=== PATIENT | female | born 1970 | race Caucasian/White ===

== ENCOUNTER → 2017-02-25 | Outpatient (CLI) | payer OTHER ==
--- NOTE | 2017-02-26 07:29 | XR ---
EXAMINATION TYPE: XR lumbar spine 2 or 3V DATE OF EXAM: 02/25/2017 4:15 PM COMPARISON: 10/01/2016 HISTORY: Spondylosis with radiculopathy, follow-up back surgery TECHNIQUE: 3 view lumbar spine FINDINGS: Pedicle screws are present L3 and L4. Laminectomies are present L3-L5. Disc spaces are pres ent L4-5 and L5-S1. Bone buttressing is present along the lateral lower lumbar spine. Vertebral body alignment appears normal. Posterior disc space narrowing is present L3-4. IMPRESSION: 1. Stable postsurgical changes with maturation of the osseous bone buttressing.
== END ==
LOC: RADXRMAIN 16:00
DX: M47.26 Other spondylosis with radiculopathy, lumbar region (principal); M48.06 Spinal stenosis, lumbar region
CPT/HCPCS: 36415; 72100; 83036; 84450; 84460; 85025

== ENCOUNTER → 2017-02-25 | Outpatient (CLI) | payer OTHER ==
[2017-02-25 16:47] LABS: Basophils % (A) 0 %; CH 33.9; CHCM 35.5; Eosinophils # (A) 0.3 k/uL (0-0.7); Eosinophils % (A) 5 %; HCT 36.5 % (34.0-46.0); HDW 2.65; HGB 12.7 gm/dL (11.4-16.0); Luc # (Auto) 0.14; Luc % (Auto) 3; Lymphocytes # (A) 1.5 k/uL (1.0-4.8); Lymphocytes % (A) 30 %; MCH 33.3 pg (25.0-35.0); MCHC 34.7 g/dL (31.0-37.0); Mean Platelet Volume 7.9; Monocytes # (A) 0.3 k/uL (0-1.0); Monocytes % (A) 6 %; Neutrophils # (A) 2.7 k/uL (1.3-7.7); Neutrophils % (A) 55 %; WBC (Perox) 5.34
[2017-02-25 16:54] LABS: ALT 30 U/L (9-52); AST 26 U/L (14-36)
[2017-02-25 20:38] LABS: Hemoglobin A1C 4.5 % (4.2-6.1)
== END ==
LOC: LABWHC1 16:26
PROVIDERS: ATTEND Psychiatry & Neurology Neurology
DX: G35 Multiple sclerosis (principal); Z79.899 Other long term (current) drug therapy
CPT/HCPCS: 36415; 83036; 84450; 84460; 85025

== ENCOUNTER → 2017-04-19 | Outpatient (CLI) | payer OTHER ==
[2017-04-19 14:26] LABS: ALT 39 U/L (9-52); AST 24 U/L (14-36)
== END | disposition home or self-care (01) ==
LOC: LABWHC1 12:39
PROVIDERS: ATTEND Psychiatry & Neurology Neurology
DX: G35 Multiple sclerosis (principal); Z79.899 Other long term (current) drug therapy
CPT/HCPCS: 36415; 84450; 84460

== ENCOUNTER 2017-06-28 16:37 | Emergency (ER) | payer OTHER ==
[2017-06-28 16:52] VITALS: BP 113/73; PULSE 103; RESP 16; TEMP 97.7
[2017-06-28] MEDS ORDERED: DIPH,PERTUS(ACELL)TETVAC-LF 0.5 ML VIAL IM ONE (17:15)
--- NOTE | 2017-06-28 17:20 | ED ---
General Adult HPI - General Chief complaint: Wound/Laceration Stated complaint: Hand Laceration Time Seen by Provider: 06/28/17 16:51 Source: patient, RN notes reviewed Mode of arrival: ambulatory Limitations: no limitations - History of Present Illness Initial comments: Patient 47-year-old female who presents emergency room today with a chief complaint of a laceration to the left hand between the web space of the second and third digits. Patient does admit that she was trying to cut a avocado when the knife when straight throat causing this laceration. States it was brand- new knife. Patient denies any other complaints or associated symptoms. Patient denies any recent fever, chills, shortness of breath, chest pain, back pain, abdominal pain, nausea or vomiting, numbness or tingling, dysuria or hematuria, constipation or diarrhea, headaches or visual changes, or any other complaints. - Related Data Home Medications Medication Instructions Recorded Confirmed Baclofen 10 mg PO QID 09/25/15 06/25/17 Betaseron 1 injection IM Q48H 09/25/15 06/25/17 traMADol HCL [Ultram] 50 mg PO BID PRN 09/25/15 06/25/17 Acetaminophen Tab [Tylenol] 1,000 mg PO Q6HR PRN 10/30/15 06/25/17 Multivitamins, Thera [Multivitamin 1 tab PO DAILY 10/30/15 06/25/17 (formulary)] [place]-3 Fatty Acids/Fish Oil [Fish 1 cap PO BID 10/30/15 06/25/17 Oil 1,000 mg Softgel] Vitamin B Complex 1 cap PO DAILY 10/30/15 06/25/17 buPROPion XL [Wellbutrin XL] 450 mg PO DAILY 04/30/16 06/25/17 Ascorbic Acid [Vitamin C] 1,000 mg PO BID 06/25/17 06/25/17 Cephalexin [Keflex] 500 mg PO QAM 06/25/17 06/25/17 Cholecalciferol [Vitamin D3] 5,000 unit PO DAILY 06/25/17 06/25/17 Cranberry Fruit Concentrate 450 mg PO BID 06/25/17 06/25/17 [Cranberry] Furosemide [Lasix] 20 mg PO DAILY PRN 06/25/17 06/25/17 Gabapentin 600 mg PO QID 06/25/17 06/25/17 Hydroxychloroquine Sulfate 200 mg PO BID 06/25/17 06/25/17 [Plaquenil] L.acidoph,Paracasei, B.lactis 1 each PO DAILY 06/25/17 06/25/17 [Probiotic] Levothyroxine Sodium [Synthroid] 175 mg PO QAM 06/25/17 06/25/17 Magnesium Oxide [Mag-Ox] 250 mg PO HS 06/25/17 06/25/17 Methylcellulose Tablet 500 mg PO BID 06/25/17 06/25/17 Naproxen Sodium 220 mg PO BID PRN 06/25/17 06/25/17 Niacin [Niacin ER] 500 mg PO DAILY 06/25/17 06/25/17 Oxybutynin Chloride [Ditropan] 5 mg PO TID 06/25/17 06/25/17 Phentermine HCl [Adipex-P] 37.5 mg PO QAM 06/25/17 06/25/17 Stool Softner 1 tab PO DAILY PRN 06/25/17 06/25/17 amLODIPine [Norvasc] 5 mg PO DAILY 06/25/17 06/25/17 Previous Rx's Medication Instructions Recorded Cephalexin [Keflex] 500 mg PO Q12HR 10 Days 06/28/17 Allergies Allergy/AdvReac Type Severity Reaction Status Date / Time No Known Allergies Allergy Verified 06/28/17 16:52 Review of Systems ROS Statement: Those systems with pertinent positive or pertinent negative responses have been documented in the HPI. ROS Other: All systems not noted in ROS Statement are negative. Past Medical History Past Medical History: Neurologic Disorder, Thyroid Disorder Additional Past Medical History / Comment(s): Lupus and rheumatoid arthritis, 2015 uti/sepsis-ecoli, kidney stone, constipation, multiple sclerosis, self cath, has urinary retention, frequent UTI's, History of Any Multi-Drug Resistant Organisms: MRSA Date of last positivie culture/infection: 2014 MDRO Source:: leg Past Surgical History: Back Surgery, Bladder Surgery, Section, Cholecystectomy Additional Past Surgical History / Comment(s): fusion l4-l5 has screws/later removed, raven bunionectomies, bladder sling, 2. lithotripsy, fusion L3 and L4 Past Anesthesia/Blood Transfusion Reactions: No Reported Reaction Past Psychological History: Anxiety Smoking Status: Former smoker Past Alcohol Use History: None Reported Past Drug Use History: None Reported - Past Family History Father Family Medical History: Cancer Additional Family Medical History / Comment(s): lung cancer x2 Mother Family Medical History: Cancer Additional Family Medical History / Comment(s): rectal cancer General Exam - General Exam Comments Initial Comments: General: The patient is awake and alert, in no distress, and does not appear acutely ill. Neck: The neck is supple, there is no tenderness or JVD. Cardiovascular: There is a regular rate and rhythm. No murmur, rub or gallop is appreciated. Respiratory: Lungs are clear to auscultation, respirations are non-labored, breath sounds are equal. No wheezes, stridor, rales, or rhonchi. Musculoskeletal: Full range of motion. Sensation intact. Pulses equal bilaterally 2+. Strength 5/5. Neurological: A&O x 3. CN II-XII intact, There are no obvious motor or sensory deficits. Coordination appears grossly intact. Speech is normal. Skin: Patient does have a 2 cm linear laceration to the webspace between the second and third digit of the left hand. No active bleeding. Psychiatric: Normal mood and affect. Limitations: no limitations Course Vital Signs 06/28/17 16:50 Temperature 97.7 F Pulse Rate 103 H Respiratory 16 Rate Blood Pressure 113/73 O2 Sat by Pulse 98 Oximetry Procedures - Procedures Initial comment: 2 cm linear laceration to the webspace of the second and third digit of the left hand.The skin was anesthetized with 1% lidocaine. The laceration was then cleansed with Betadine and irrigated with normal saline. The wound was inspected , and there was no evidence of injury to deep structures. No foreign body was noted in the wound. A total of 3 skin sutures were placed utilizing 5-0 nylon. Disposition Clinical Impression: Laceration Disposition: HOME SELF-CARE Condition: Good Instructions: Laceration (ED) Additional Instructions: Please return to the emergency room in 8-10 days to have sutures removed. Please watch for any signs of infection which may include increased pain, swelling, redness, fever or chills. Please return to emergency room for any signs of infection do occur. Please use clean soap and water over the area to prevent scabbing over your stitches. Please leave wound covered for the first 24-48 hours and then leave wound open to air. Please return to the emergency room for any other concerns. Prescriptions: Cephalexin [Keflex] 500 mg PO Q12HR 10 Days Referrals: Myron Hyatt MD [Primary Care Provider] - 1-2 days Time of Disposition: 17:19
== END 2017-06-28 17:53 | disposition home or self-care (01) ==
LOC: EC 16:37
DX: S61.412A Laceration without foreign body of left hand, initial encounter (principal); E07.9 Disorder of thyroid, unspecified; F41.9 Anxiety disorder, unspecified; Z23 Encounter for immunization; Z87.891 Personal history of nicotine dependence; Z79.899 Other long term (current) drug therapy; W26.0XXA Contact with knife, initial encounter
CPT/HCPCS: 12001; 90471; 90715; 99282

== ENCOUNTER → 2017-08-02 | Outpatient (CLI) | payer OTHER ==
[2017-08-02 13:44] LABS: Basophils % (A) 1 %; CH 33.7; CHCM 34.8; Eosinophils # (A) 0.4 k/uL (0-0.7); Eosinophils % (A) 8 %; HCT 39.9 % (34.0-46.0); HDW 2.55; HGB 13.7 gm/dL (11.4-16.0); Luc # (Auto) 0.15; Luc % (Auto) 3; Lymphocytes # (A) 1.5 k/uL (1.0-4.8); Lymphocytes % (A) 26 %; MCH 33.3 pg (25.0-35.0); MCHC 34.2 g/dL (31.0-37.0); MCV 97.4 fL (80.0-100.0); Mean Platelet Volume 7.5; Monocytes # (A) 0.3 k/uL (0-1.0); Monocytes % (A) 6 %; Neutrophils # (A) 3.3 k/uL (1.3-7.7); Neutrophils % (A) 58 %; RDW 12.2 % (11.5-15.5); WBC 5.8 k/uL (3.8-10.6); WBC (Perox) 6.23
[2017-08-02 13:59] LABS: ALT 35 U/L (9-52); AST 20 U/L (14-36)
== END | disposition home or self-care (01) ==
LOC: LABWHC1 13:13
PROVIDERS: ATTEND Psychiatry & Neurology Neurology
DX: G35 Multiple sclerosis (principal)
CPT/HCPCS: 36415; 84450; 84460; 85025

== ENCOUNTER → 2017-08-12 | Outpatient (CLI) | payer OTHER ==
[2017-06-25 14:45] VITALS: BMI 22.1
[2017-08-12 12:25] VITALS: BP 108/74; PULSE 96; RESP 16; TEMP 98.1
--- NOTE | 2017-08-12 12:55 | P.HPIM ---
History of Present Illness H&P Date: 08/12/17 Chief Complaint: low back and right leg pain This is a 47-year-old patient referred by Dr. Chairez for chronic pain in low back and RLE after recent L3-L4 foraminotomy and fusion surgery. Patient had previously had fusion at L4-L5 level and this gave her relief for > 10 years, but last procedure has only given her 6-8 months' worth of relief. Patient also has a history of MS and has been taking medications from primary care physician with some relief. Patient denies adverse drug effects from medications. Patient also denies new-onset weakness, bowel/bladder incontinence , or any other signs or symptoms of cauda equina syndrome. There are no signs of acute intoxication, and no indications of medication diversion or overuse. Patient notes that pain worsens significantly with standing and walking, and improves with rest, sitting down, and medication. Patient has used several types of medications for pain, including NSAIDS, OPIOIDS, BENZODIAZEPINES. Patient HAS had surgery. Patient HAS NOT had injections previously. Patient HAS had physical therapy recently without relief. In addition to above, 13-point review of systems is also negative for chest pain , shortness of breath, changes in vision, changes in hearing, new onset weakness , abdominal pain, diarrhea, extreme fatigue, malaise, fever, skin changes, homicidal or suicidal ideation, or bowel or bladder incontinence. Vital Signs: Reviewed in EMR Gen: WDWN, AAOx3, NAD HEENT: NCAT, EOMI, hearing grossly normal Pulm: resp unlabored Abd: soft, NT, ND Neck: supple, trachea midline ROM in flexion lumbar spine: reduced ROM in extension lumbar spine: reduced Lumbar paravertebral tenderness: + Facet loading: + bilateral, R > L SI joint tenderness: + R > L Steven's test: + R > L Straight leg raise: + RLE at 10 degrees Neuro: CN II-XII grossly intact, reduced sensation to pinprick RLE Past Medical History Past Medical History: Neurologic Disorder, Thyroid Disorder Additional Past Medical History / Comment(s): Lupus and rheumatoid arthritis, 2015 uti/sepsis-ecoli, kidney stone, constipation, multiple sclerosis diagnosed in 2014, self cath, has urinary retention, frequent UTI's, herniated disc History of Any Multi-Drug Resistant Organisms: MRSA Date of last positivie culture/infection: 2014 MDRO Source:: leg Past Surgical History: Back Surgery, Bladder Surgery, Section, Cholecystectomy Additional Past Surgical History / Comment(s): fusion l4-l5 has screws/later removed, raven bunionectomies, bladder sling, 2. lithotripsy, fusion L3 and L4 Past Anesthesia/Blood Transfusion Reactions: No Reported Reaction Smoking Status: Former smoker - Past Family History Father Family Medical History: Cancer Additional Family Medical History / Comment(s): lung cancer x2 Mother Family Medical History: Cancer Additional Family Medical History / Comment(s): rectal cancer Medications and Allergies Home Medications Medication Instructions Recorded Confirmed Type Baclofen 10 mg PO Q5H 09/25/15 08/12/17 History Betaseron 1 injection IM Q48H 09/25/15 08/12/17 History traMADol HCL [Ultram] 50 mg PO BID PRN 09/25/15 08/12/17 History Acetaminophen Tab [Tylenol] 1,000 mg PO Q6HR PRN 10/30/15 08/12/17 History Multivitamins, Thera [Multivitamin 1 tab PO DAILY 10/30/15 08/12/17 History (formulary)] [place]-3 Fatty Acids/Fish Oil [Fish 1 cap PO BID 10/30/15 08/12/17 History Oil 1,000 mg Softgel] Vitamin B Complex 1 cap PO DAILY 10/30/15 08/12/17 History buPROPion XL [Wellbutrin XL] 450 mg PO DAILY 04/30/16 08/12/17 History Ascorbic Acid [Vitamin C] 1,000 mg PO BID 06/25/17 08/12/17 History Cephalexin [Keflex] 500 mg PO QAM 06/25/17 08/12/17 History Cholecalciferol [Vitamin D3] 5,000 unit PO DAILY 06/25/17 08/12/17 History Cranberry Fruit Concentrate 450 mg PO BID 06/25/17 08/12/17 History [Cranberry] Furosemide [Lasix] 20 mg PO DAILY PRN 06/25/17 08/12/17 History Gabapentin 600 mg PO QID 06/25/17 08/12/17 History Hydroxychloroquine Sulfate 200 mg PO BID 06/25/17 08/12/17 History [Plaquenil] L.acidoph,Paracasei, B.lactis 1 each PO DAILY 06/25/17 08/12/17 History [Probiotic] Levothyroxine Sodium [Synthroid] 175 mg PO QAM 06/25/17 08/12/17 History Magnesium Oxide [Mag-Ox] 250 mg PO HS 06/25/17 08/12/17 History Methylcellulose Tablet 500 mg PO BID 06/25/17 08/12/17 History Naproxen Sodium 220 mg PO BID PRN 06/25/17 08/12/17 History Niacin [Niacin ER] 500 mg PO DAILY 06/25/17 08/12/17 History Oxybutynin Chloride [Ditropan] 5 mg PO TID 06/25/17 08/12/17 History Phentermine HCl [Adipex-P] 37.5 mg PO QAM 06/25/17 08/12/17 History Stool Softner 1 tab PO DAILY PRN 06/25/17 08/12/17 History amLODIPine [Norvasc] 5 mg PO DAILY 06/25/17 08/12/17 History Allergies Allergy/AdvReac Type Severity Reaction Status Date / Time No Known Allergies Allergy Verified 08/12/17 12:00 Physical Exam Vitals: Vital Signs Temp Pulse Resp BP Pulse Ox 08/12/17 12:17 98.1 F 96 16 108/74 99 Results Comments: MRI lumbar spine without contrast demonstrates bone grafts seen in the disc spaces at L4-L5 and L5-S1 within the level of spinal fusion surgery at the L3- L4 level with metallic hardware. There is evidence of small persistent central disc herniation with a small superior migrating fragment at the T12-L1 level. Conus medullaris is normal in position and is not compromised. Assessment and Plan (1) Postlaminectomy syndrome Status: Chronic (2) Lumbar spondylosis with myelopathy Status: Chronic (3) Chronic pain syndrome Status: Chronic Plan: 1. Explanation: Opioid and psychological risk scores were reviewed. Diagnoses , prognoses, and multiple treatment options including but not limited to physical therapy, interventional therapies, adjuvant medical therapies, narcotic medication therapies, and surgery were discussed with the patient and all questions were answered to the patient's satisfaction. 2. Opioid agreement: no opioids prescribed today 3. Counseling: The patient was counseled extensively on BODY MASS INDEX, EXERCISE. Specifically, the patient was instructed regarding the importance of weight control, and exercise in the context of both chronic pain and overall health. 4. Procedures: bilateral L1-L2 and L2-L3 medial branch blocks (requested by Dr. Chairez) 5. Consultations: none 6. Investigations: none 7. Medications: none prescribed 8. Disposition: f/u for procedure as scheduled PQRS measures: 1-Patient's medications are documented in the chart. 2-Tobacco use is negative 3-Patient has had a pneumococcal vaccine. 4-Advanced care planning discussed, patient unable to give. 5-Opioid contract NOT signed with the patient. 6-Pain positive, follow-up visit or procedure scheduled 7-Patient's blood pressure measured and documented, and WNL. 8-Patient's weight was measured, and body mass index within the normal limits. 9-Patient WAS NOT identified as an unhealthy alcohol user. Time with Patient: Greater than 30
== END ==
LOC: PNWHC3 11:53
PROVIDERS: ATTEND Anesthesiology
DX: M47.16 Other spondylosis with myelopathy, lumbar region (principal); M96.1 Postlaminectomy syndrome, not elsewhere classified; Z79.899 Other long term (current) drug therapy
CPT/HCPCS: 99211

== ENCOUNTER 2017-09-03 08:34 | Day surgery (SDC) | payer OTHER ==
[2017-08-28 14:57] VITALS: BMI 22.1
[2017-09-03 08:49] VITALS: RESP 16; TEMP 98.4
[2017-09-03] MEDS ORDERED: LIDOCAINE 1% 20 ML VIAL (10MG/ML) FOR IV START INTRADERMA ONE (08:52)
[2017-09-03] MEDS ORDERED: LACTATED RINGERS 1,000 ML IV ONE (08:52)
[2017-09-03] MEDS ORDERED: LACTATED RINGERS 1,000 ML IV SCH (09:30)
[2017-09-03] MEDS ORDERED: IV FLUID CONTINUATION 1,000 ML IV ONE (10:04)
--- NOTE | 2017-09-03 10:08 | P.PCN ---
Date of Procedure: 09/03/17 Surgeon: Sahil Gutiérrez Pathology: none sent Condition: stable Disposition: PACU Description of Procedure: PREOPERATIVE DIAGNOSIS: Lumbar spondylosis without myelopathy and facet arthropathy. POSTOPERATIVE DIAGNOSIS: Lumbar spondylosis without myelopathy and facet arthropathy. PROCEDURE DESCRIPTION: Patient presents for L1-L2, L2-L3 bilateral diagnostic medial branch blocks under fluoroscopic guidance. The procedure is performed using fluoroscopic guidance during needle placement to assure proper position and maximize safety. ANESTHESIA: Local with 1% lidocaine; conscious sedation EBL: Minimal PROCEDURE INDICATION: Patient with lumbar facet arthropathy signs and symptoms, here for diagnostic medial branch block. Pt does not take any blood thinning medications. PROCEDURE DESCRIPTION: The patient was seen and identified in the preoperative area. Risks, benefits, complications, and alternatives were discussed with the patient (including but not limited to incomplete pain relief, bleeding, infection, nerve damage, and allergies to medications), the patient agreed to proceed with the procedure and signed the consent after all questions were answered. Patient was taken to the OR and time out was completed to verify proper patient, position, laterality of pain, and allergies. Pt was placed in the prone position and a pillow was placed under the abdomen to reduce lumbar lordosis. The lumbosacral area was prepped and draped in the usual sterile fashion. Using oblique fluoroscopy, the eye of the "Mart dog" of right L2 vertebral body, which corresponds to the path of the medial branch originating from the level above, which is L1 in this case, was identified. Subsequently, a 22-gauge 3.5-inch spinal needle was inserted under fluoroscopic guidance toward the eye of the "Mart dog" of the right L2 vertebral body, corresponding to the junction of the superior articular process and the transverse process of the pedicle of the same level. After needle tip confirmation on lateral view and after negative aspiration for CSF and blood and without paresthesias, 1 mL of a 4 ml solution of 0.5% preservative-free bupivacaine and 40 mg Kenalog was injected. Subsequently the needle was withdrawn intact and the same procedure was repeated for the right L2, left L1, left L2 medial branches. Needle was withdrawn intact after each injection. At the end of the procedure, the skin was cleansed and bandages were applied. COMPLICATIONS: None. DISPOSITION/PLAN: The patient taken to the recovery area after the procedure in a stable condition for observation. Patient was reexamined prior to discharge and there were no issues. Patient was discharged home, accompanied by an adult, after meeting discharged criteria. Discharge instructions were give to the patient by the staff. Patient was specifically instructed not to drive today and to rest for the rest of the day. Patient will follow up for repeat procedure bilateral LMBB L1-L2, L2-L3 as requested by Dr. Chairez. Can consider adding T12-L1 level if relief limited.
--- NOTE | 2017-09-03 10:16 | FL ---
EXAMINATION TYPE: FL guided pain mgmt statistic DATE OF EXAM: 09/03/2017 CLINICAL HISTORY: Low back pain. TECHNIQUE: Fluoroscopy. COMPARISON: None. FINDINGS: Fluoroscopic guidance was provided during pain relief procedure performed by Dr. Gutiérrez . A total of 29 seconds of fluoroscopic time was utilized during the procedure and 6 spot images are ac quired. Images acquired shows needle localization at several levels in the lumbar spine. There is pa rtial visualization of surgical changes lower lumbar spine. IMPRESSION: As Above.
[2017-09-03 10:25] VITALS: BP 111/66; PULSE 79
== END 2017-09-03 10:41 | disposition home or self-care (01) ==
LOC: ORPAIN 08:34
PROVIDERS: ATTEND Anesthesiology
DX: M47.816 Spondylosis without myelopathy or radiculopathy, lumbar region (principal); M46.96 Unspecified inflammatory spondylopathy, lumbar region; G89.4 Chronic pain syndrome; M96.1 Postlaminectomy syndrome, not elsewhere classified; G35 Multiple sclerosis; M06.9 Rheumatoid arthritis, unspecified; Z87.440 Personal history of urinary (tract) infections; Z87.891 Personal history of nicotine dependence; Z79.1 Long term (current) use of non-steroidal anti-inflammatories (NSAID); Z79.891 Long term (current) use of opiate analgesic; Z79.899 Other long term (current) drug therapy
CPT/HCPCS: 81025; 64493; 64494; 64495; 99152; J2250; J3301

== ENCOUNTER 2017-09-30 09:29 | Day surgery (SDC) | payer OTHER ==
[2017-09-26 08:19] VITALS: BMI 21.9
[~2017-09-30 09:29] MED LIST: LACTATED RINGERS 1,000 ML IV SCH
[2017-09-30 09:50] VITALS: RESP 16; TEMP 98.6
[2017-09-30] MEDS ORDERED: LIDOCAINE 1% 20 ML VIAL (10MG/ML) FOR IV START INTRADERMA ONE (09:54)
--- NOTE | 2017-09-30 10:32 | P.PCN ---
Date of Procedure: 09/30/17 Preoperative Diagnosis: Lumbar spondylosis without myelopathy Of failed back surgery syndrome Postoperative Diagnosis: Same as above Procedure(s) Performed: Lumbar bilateral medial branch block under fluoroscopic guidance for levels L2-3 , L3-4, andL4-L5. Anesthesia: MAC (Conscious sedation with IV versed) Surgeon: Michael Muniz Pathology: none sent Condition: stable Disposition: PACU Description of Procedure: the patient was seen and identified in the preop holding area , risks and benefits and possible complications of the procedure and alternatives were discussed with the patient, and the patient agreed to proceed with the procedure and signed the consent. IV was started and vital signs monitored during the procedure and fluoroscopy was used to maximize the benefit and accuracy of the needle placement, sedation was given to decrease patient anxiety, patient was taken to the procedure room and placed in prone position vital signs monitored. The patient had lumbar fusion with hardware between L3 and L4 and lumbar laminectomy with bony fusion between L4 and S1, disc changing the anatomy affected my chosen levels for this block and I did the medial branch block for the levels above and below the hardware fusion including medial branch lumbar L1 , L3 and L4 The patient was seen in the preop holding area consent was obtained then she was brought into the procedure room and placed in prone position. Skin was prepped with Chloraprep and draped in a sterile manner. Lidocaine 1% was used to numb the skin up at the target points that were mentioned above. for theL1, L3 and L4 medial branches the target points were the connection between the transverse process and the superior to go process of L2, L4 and L5 respectively on the oblique views of fluoroscopy. I used 25-gauge 3-1/2 inch Qu[place]ke spinal needles for this procedure and after contacting bone at the target points mentioned above I injected 1 mL of a solution made up of 5 mls Marcaine 0.5% PF and 40 mg of Kenalog . Patient tolerated procedure well. At the end of the procedure the needles removed and a bandage applied after the skin was cleaned the cleaning solution. patient was then taken to the recovery room in stable condition and monitored in the recovery room for 20-30 minutes and discharged home in stable condition after discharge criteria met .
[2017-09-30] MEDS ORDERED: IV FLUID CONTINUATION 1,000 ML IV ONE (10:37)
[2017-09-30 11:00] VITALS: BP 119/62; PULSE 88
--- NOTE | 2017-09-30 11:56 | FL ---
Fluoroscopy HISTORY: Pain 26 seconds fluoroscopy time supplied to the referring clinician. 0 intraoperative C-arm images docum ent the procedure. See dictated report from anesthesia.
== END 2017-09-30 11:13 | disposition home or self-care (01) ==
LOC: PNWHC3 09:29
PROVIDERS: ATTEND Anesthesiology
DX: M47.816 Spondylosis without myelopathy or radiculopathy, lumbar region (principal); M96.1 Postlaminectomy syndrome, not elsewhere classified; G35 Multiple sclerosis; Z79.899 Other long term (current) drug therapy
CPT/HCPCS: 81025; 64493; 64494; 64495; J2250; J3301; 99152

== ENCOUNTER → 2017-10-29 | Outpatient (CLI) | payer OTHER ==
[2017-10-29 13:36] VITALS: BP 108/74; PULSE 87; RESP 18; TEMP 97.8
--- NOTE | 2017-10-29 13:54 | P.PN ---
Progress Note - Text Progress Note Date: 10/29/17 This is a 47-year-old female with history of multiple sclerosis and lumbar fusion between L3 and L4 and laminectomy at the lower levels. She had lumbar medial branch block above the fusion level and helped her pain significantly for the first few hours after the injection. His tramadol and 2 pills a day when necessary pain. She denies any legs pain at this time however she does feel occasionally some leg pain and tingling. The patient does have to catheterize herself to avoid urinary retention because of her multiple sclerosis diagnosis. sHe denies any weakness in her lower extremities at this point. He is alert oriented 3 in no apparent distress. I'll schedule the patient to have right lumbar medial branch RFA for levels L2- L3, L3 4, and L4 5 under fluoroscopic guidance. The procedure was explained to the patient and her questions were answered. A few weeks after this procedure then we'll plan on doing the left side.
== END | disposition home or self-care (01) ==
LOC: PNWHC3 13:13
PROVIDERS: ATTEND Anesthesiology
DX: M43.26 Fusion of spine, lumbar region (principal); G35 Multiple sclerosis; Z98.890 Other specified postprocedural states; Z79.891 Long term (current) use of opiate analgesic
CPT/HCPCS: 99211

== ENCOUNTER 2017-12-09 08:10 | Day surgery (SDC) | payer OTHER ==
[2017-12-02 16:18] VITALS: BMI 21.9
[2017-12-09 08:47] VITALS: RESP 16; TEMP 97.7
[2017-12-09] MEDS: LACTATED RINGERS 1,000 ML IV SCH ×2 (08:53→09:00)
--- NOTE | 2017-12-09 09:58 | FL ---
Fluoroscopy INDICATION: Pain FINDINGS: Fluoroscopy time: 41 seconds. Images obtained: 2. IMPRESSIONS: 1. Documentation of fluoroscopy.
[2017-12-09 10:11] VITALS: BP 121/82; PULSE 76
--- NOTE | 2017-12-09 10:20 | P.PCN ---
Date of Procedure: 12/09/17 Surgeon: Sahil Gutiérrez Pathology: none sent Condition: stable Disposition: PACU Description of Procedure: PREOPERATIVE DIAGNOSIS: Lumbar spondylosis without myelopathy and facet arthropathy POSTOPERATIVE DIAGNOSIS: Lumbar spondylosis without myelopathy and facet arthropathy PROCEDURES: Right Radiofrequency thermocoagulation, L1-L2, L2-L3, L4-L5 facet medial branches, with fluoroscopic guidance. ANESTHESIA: 1% lidocaine plain; Conscious sedation with versed/fentanyl EBL: Minimal PROCEDURE INDICATION: The patient with low back pain secondary to lumbar arthropathy who had more than 50% relief of pain with previous diagnostic lumbar medial branch block with bupivacaine. Patient presents for right lumbar RFA today; no use of blood thinners. I could not effectively visualize the articulation between the SAP and TP at the L3-4 level due to laminectomy changes and thus this level was avoided. PROCEDURE DESCRIPTION / TECHNIQUE: The patient was seen and identified in the preoperative area. Risks, benefits, complications, and alternatives were discussed with the patient (including but not limited to incomplete pain relief , bleeding, infection, nerve damage, and allergies to medications), the patient agreed to proceed with the procedure and signed the consent after all questions were answered. Patient was taken to the OR and time out was completed to verify proper patient , position, laterality of pain, and allergies. Pt was placed in the prone position. IV was started. Vital signs remained stable throughout the procedure. A pillow was placed under the patients chest to decrease lordosis. The lumbosacral area was prepped and draped in the usual sterile fashion. Vital signs were closely monitored during the procedure. Conscious sedation was used during the procedure to decrease patients anxiety. Using AP and then oblique fluoroscopy, the eye of the Mart dog corresponding to the connection between the superior and transverse articular processes of right L1, L2, L3, and L4 were identified, marked, and localized with 1% lidocaine. Subsequently, a 18 gauge, 100-mm radiofrequency cannula with a 10-mm active tip was advanced guided by fluoroscopy to each of the eyes of the Mart dog at the levels of all four medial branches. Each site then underwent sensory testing at 50 Hz and 0 to 1 volt and motor testing at 2 Hz and 0 to 3 volt with local stimulation, but no radicular symptoms down the legs. Thereafter all four medial branch sites underwent radiofrequency thermocoagulation at 80 degrees Celsius for 90 seconds after injecting 0.5 ml of PF lidocaine 1%. After thermocoagulation, 1 ml of the block solution containing Kenalog 40 mg and 2 mL of preservative-free normal saline was injected at all four medial branch levels after negative aspiration of CSF and blood and with no paresthesias. Cannulas were retracted while injecting lidocaine 1% until the needles were removed. At the end of the procedure, the skin was cleansed and bandages were applied. COMPLICATIONS: No acute complications. DISPOSITION / PLANS: The patient was placed in a supine position and transferred to the recovery area in a stable condition for observation and was discharged from the recovery room after meeting discharge criteria. Home discharge instructions given to the patient by the staff. The patient was reexamined prior to discharge. The patient will schedule left lumbar RFA in 3-4 weeks.
== END 2017-12-09 10:23 | disposition home or self-care (01) ==
LOC: ORPAIN 08:10
PROVIDERS: ATTEND Anesthesiology
DX: M47.816 Spondylosis without myelopathy or radiculopathy, lumbar region (principal); M96.1 Postlaminectomy syndrome, not elsewhere classified; I10 Essential (primary) hypertension; I25.10 Atherosclerotic heart disease of native coronary artery without angina pectoris; K21.9 Gastro-esophageal reflux disease without esophagitis; Z98.890 Other specified postprocedural states
CPT/HCPCS: 64635; 64636 ×2; J2250; J3301; J2001; J3010; 99152; 99153

== ENCOUNTER 2018-01-06 08:36 | Day surgery (SDC) | payer OTHER ==
[2017-12-31 15:59] VITALS: BMI 22.2
[2018-01-06 09:29] VITALS: RESP 16; TEMP 98.8
[2018-01-06] MEDS ORDERED: LIDOCAINE 1% 20 ML VIAL (10MG/ML) FOR IV START INTRADERMA ONE (09:30)
[2018-01-06] MEDS ORDERED: MIDAZOLAM 2 MG/2 ML VIAL IVP ONE (09:53)
--- NOTE | 2018-01-06 10:55 | P.PCN ---
Date of Procedure: 01/06/18 Procedure(s) Performed: PREOPERATIVE DIAGNOSIS: 1-Lumbar Spondylosis with Facet Arthropathy without myelopathy. POSTOPERATIVE DIAGNOSIS: 1- Lumbar Spondylosis with Facet Arthropathy without myelopathy. PROCEDURES : Left Radiofrequency thermocoagulation, L1-2 , L2-3 , L4-L5 medial branch, with fluoroscopic guidance ANESTHESIA: Moderate sedation with intravenous versed mg and fentaneyl mcg and local infiltration with lidocaine 1% 6 ml EBL: Minimal PROCEDURE INDICATION: The patient with low back pain secondary to lumbar facet arthropathy who had more than 50% relief of her pain with previous diagnostic lumbar medial branch block with bupivacaine. PROCEDURE DESCRIPTION / TECHNIQUE: The patient was seen and identified in the preoperative area. Risks, benefits, complications, including but not limited to risk of infection ,bleeding , allergic reactions to the medications and no complete pain releife , and alternatives were discussed with the patient, the patient agreed to proceed with the procedure and signed the consent. IV was started. Vital signs remained stable throughout the procedure. Patient was taken to the OR and time out was completed. The patient was placed in the prone position on the procedure table. The lumber area was prepped and draped in the usual sterile fashion. . Vital signs were closely monitored during the procedure .IV sedation was used during the procedure to decrease patients anxiety. Using AP and then oblique fluoroscopy, the ``eye of the Mart dog corresponding to the connection between the superior and transverse articular processes of Left L1 ,L2 , L4 were identified, marked, and localized with 1% lidocaine. Subsequently, a [id number] radiofrequency cannula with a 10-mm active tip was advanced guided by fluoroscopy to each of the ``eyes of the Mart dog at Left L1 , L2 L4 Each site then underwent sensory testing at 50 Hz and 0 to 1 volt and motor testing at 2.5 Hz and 0 to 3 volt with local stimulation, but no radicular symptoms down the legs. Thereafter the Left L1-2 , L2-3 , L4-5 sites underwent radiofrequency thermocoagulation at 80 degrees celsius for 90 seconds after injecting 0.5 ml of PF lidocaine 1%. then After the thermocoagulation done , 1 ml of the block solution containing Kenalog 40 mg and 3 ml of marcain 0.5% was injected at theLeft L1-2 ,L2-3 ,L4- 5 , levels after negative aspiration of CSF and blood and with no paresthesias. Cannulas were retracted while injecting lidocaine 1% until the needle is out. At the end of the procedure, the skin was cleansed and bandages were applied. COMPLICATIONS: No acute complications. DISPOSITION / PLANS: The patient was placed in a supine position and transferred to the recovery area in a stable condition for observation and was discharged from the recovery room after meeting discharge criteria. Home discharge instructions given to the patient by the staff. The patient was reexamined prior to discharge. The patient will schedule a follow up in the clinic in 2-4 weeks.
[2018-01-06 11:22] VITALS: BP 112/73; PULSE 76
[2018-01-06] MEDS ORDERED: IV FLUID CONTINUATION 1,000 ML IV ONE (11:22)
--- NOTE | 2018-01-06 13:00 | FL ---
EXAMINATION TYPE: FL guided pain mgmt statistic DATE OF EXAM: 01/06/2018 COMPARISON: NONE HISTORY: Lumbar back pain TECHNIQUE: Fluoroscopy. FINDINGS/IMPRESSION: Fluoroscopic guidance was provided during procedure performed by Dr. Elliott. A total of 38 seconds of fluoroscopic time was utilized during the procedure and 3 spot images was a cquired demonstrating localization at multiple lumbar vertebral levels.
== END 2018-01-06 11:31 | disposition home or self-care (01) ==
LOC: ORPAIN 08:36
PROVIDERS: ATTEND Specialist
DX: M47.816 Spondylosis without myelopathy or radiculopathy, lumbar region (principal); E07.9 Disorder of thyroid, unspecified
CPT/HCPCS: 81025; 64635; 64636; J2250; J3301; J3010; 99152; 99153

== ENCOUNTER → 2018-02-03 | Outpatient (CLI) | payer OTHER ==
[2018-02-03 14:02] VITALS: BP 164/93; PULSE 95; RESP 16
--- NOTE | 2018-02-03 14:21 | P.PN ---
Subjective Progress Note Date: 02/03/18 Principal diagnosis: Failed back surgery syndrome This is a 47-year-old female with history of multiple sclerosis and failed back surgery syndrome with lower back pain. The patient also has lumbar spondylosis without myelopathy. She denies any change of her bowel or bladder function from baseline. She had the RFA on the lumbar medial branches which worked better for the right side than the left side however her pain on the left side is 50% better than before and she does not have any pain on the right side of her lower back. Objective - Vital Signs Vital signs: Vital Signs Temp Pulse 95 02/03/18 13:53 Resp 16 02/03/18 13:53 BP 164/93 02/03/18 13:53 Pulse Ox Intake & Output 02/02/18 02/03/18 02/03/18 18:59 06:59 18:59 Weight 64.864 kg - Constitutional General appearance: Present: average body habitus - EENT Eyes: Present: PERRLA - Respiratory Respiratory: bilateral: CTA - Cardiovascular Rhythm: regular - Neurologic Neurologic: Present: CNII-XII intact - Psychiatric Psychiatric: Present: A&O x's 3, appropriate affect, intact judgment & insight ( She has mild tenderness in the left side of her lower back) Assessment and Plan Plan: This is a 47-year-old female with the following diagnoses: Multiple sclerosis Failed back surgery syndrome Lumbar spondylosis without myelopathy The patient's pain has proved since her last RFA on the lumbar medial branches bilaterally with more improvement on the right side than the left side. At this point the patient can be seen in our clinic on an as-needed basis.
== END | disposition home or self-care (01) ==
LOC: PNWHC3 13:43
PROVIDERS: ATTEND Anesthesiology
DX: M96.1 Postlaminectomy syndrome, not elsewhere classified (principal); M47.816 Spondylosis without myelopathy or radiculopathy, lumbar region; G35 Multiple sclerosis
CPT/HCPCS: 99211

== ENCOUNTER → 2018-02-03 | Outpatient (CLI) | payer OTHER ==
[2018-02-03 14:51] LABS: Basophils % (A) 1 %; Eosinophils # (A) 0.3 k/uL (0-0.7); Eosinophils % (A) 7 %; HCT 35.7 % (34.0-46.0); Lymphocytes # (A) 1.2 k/uL (1.0-4.8); Lymphocytes % (A) 27 %; MCH 31.4 pg (25.0-35.0); MCHC 33.8 g/dL (31.0-37.0); Mean Platelet Volume 7.5; Monocytes # (A) 0.2 k/uL (0-1.0); Monocytes % (A) 5 %; Neutrophils # (A) 2.5 k/uL (1.3-7.7); Neutrophils % (A) 57 %; Platelet Count 217 k/uL (150-450); RBC 3.83 m/uL (3.80-5.40); RDW 12.3 % (11.5-15.5); WBC 4.3 k/uL (3.8-10.6)
[2018-02-03 15:07] LABS: ALT 34 U/L (9-52); AST 28 U/L (14-36)
== END | disposition home or self-care (01) ==
LOC: LABWHC1 14:23
PROVIDERS: ATTEND Psychiatry & Neurology Neurology
DX: G35 Multiple sclerosis (principal); Z79.899 Other long term (current) drug therapy
CPT/HCPCS: 36415; 84450; 84460; 85025

== ENCOUNTER → 2018-07-08 | Outpatient (CLI) | payer OTHER ==
--- NOTE | 2018-07-09 11:43 | MR ---
EXAMINATION TYPE: MR brain/cspine wo/w DATE OF EXAM: 07/08/2018 COMPARISON: Prior brain MR dated 05/03/2015 HISTORY: MS protocol, abnormal gait, neck pain TECHNIQUE: Multiplanar, multisequence images of the brain and brainstem, cervical spine is performed without and with IV contrast, utilizing 7.5 mL intravenous Gadavist . FINDINGS: Brain MRI: Diffusion weighted images demonstrate no evidence of a recent infarct or other diffusion a bnormality. There is no extra-axial fluid collection or significant interval change significant whit e matter signal abnormality. 8-10 small focal hyperintensities are present within the subcortical, f rontal, juxtacortical white matter as on prior exam. The largest lesion is in the insular location on the right juxtacortical location and measures 4 mm The ventricular system and cisternal spaces are n ormal in size and appearance. The brain volume is age appropriate. Midline structures demonstrate normal morphology. The craniocervical junction appears within normal limits. Post contrast images demonstrate no abnormal enhancement. The dural venous sinuses appear pa tent. The visualized sinuses are remarkable for mucoperiosteal thickening in the maxillary sinus, eth moid air cells and the globes are intact. IMPRESSION: Stable white matter changes as described. No abnormal enhancement. Cervical spine MRI: There is some apparent motion on the exam Cervical vertebral bodies show preserved height and alignment. There is mild multilevel spondylosis l oss of disc height signal at intervertebral levels compatible with disc desiccation and degenerative disc disease. There is motion on the exam, no gross signal abnormality noted within the cervical cord . Nerve sheath diverticulum present on the left C7-T1. C2-3: Unremarkable C3-4: Posterior broad-based disc bulge causes minimal anterior mass effect on the thecal sac, eccentr ic extension of endplate disc complex causes some mild right-sided foraminal encroachment. No signifi cant central stenosis C4-5: Posterior lateral extension of endplate disc complex causes some left foraminal encroachment, a nterolateral mass effect on the thecal sac. No significant central stenosis. C5-6: Posterior broad-based disc bulge causes mild anterior mass effect thecal sac, lateral extension of endplate disc complex results in bilateral foraminal encroachment. C6-7: Posterior extension of endplate disc complex results in anterior mass effect on the thecal sac, mild central stenosis. Lateral extension causes bilateral foraminal encroachment C7-T1: Unremarkable IMPRESSION: No evident cord signal change. Degenerative disc disease and multilevel foraminal encroac hment as described.
== END | disposition home or self-care (01) ==
LOC: RADMRIMAIN 21:09
PROVIDERS: ATTEND Nurse Practitioner Acute Care
DX: M50.30 Other cervical disc degeneration, unspecified cervical region (principal); G35 Multiple sclerosis
CPT/HCPCS: 70553; 72156; A9581

== ENCOUNTER → 2018-09-15 | Outpatient (CLI) | payer OTHER ==
--- NOTE | 2018-09-16 11:13 | MR ---
EXAMINATION TYPE: MR lumbar spine wo/w con DATE OF EXAM: 09/15/2018 4:55 PM COMPARISON: Outside study dated 04/03/2017 report only HISTORY: Low back pain into legs, numbness in raven feet CONTRAST: The patient was injected with 7 mL intravenous Gadavist gadolinium contrast. Multiplanar, MultiSpin echo imaging of the lumbar spine was performed. T12-L1: Moderate disc desiccation. Right paracentral extruded disc herniation is noted with effacemen t of the ventral thecal sac and no definite cord contact at this time. No evidence for central stenos is. No foraminal encroachment present. L1-L2: Normal disc appearance without desiccation. No herniation, protrusion or disc bulging. No ca nal stenosis is present. Foramina are patent bilaterally. L2-L3: Moderate disc desiccation. Circumferential disc bulge greatest posteriorly with small annular tear. Effacement of the ventral thecal sac. Decompressive laminectomy noted. Foramina patent. L3-L4: Fusion changes noted with lumbar laminectomy with pedicular screws. Alignment is anatomic. No evidence for recurrent or residual disease. Metallic susceptibility artifact limits evaluation. L4-L5: Fusion changes noted with lumbar laminectomy with pedicular screws. Alignment is anatomic. No evidence for recurrent or residual disease. L5-S1: Fusion changes noted with lumbar laminectomy with pedicular screws. Alignment is anatomic. No evidence for recurrent or residual disease. Lumbar segments are intact. No paraspinal masses are identified. Conus medullaris has a normal appe arance. IMPRESSION: 1. Multilevel degenerative disc disease and multilevel postoperative changes of fusion. 2. Extruded disc herniation at T12-L1 as discussed.
== END | disposition home or self-care (01) ==
LOC: RADMRIMAIN 08:44
PROVIDERS: ATTEND Nurse Practitioner Acute Care
DX: M51.36 Other intervertebral disc degeneration, lumbar region (principal); M51.25 Other intervertebral disc displacement, thoracolumbar region; Z98.1 Arthrodesis status
CPT/HCPCS: 72158; A9585

== ENCOUNTER 2018-10-22 12:04 | Emergency (ER) | payer OTHER ==
[2018-10-22 12:20] VITALS: BP 118/70; RESP 20; TEMP 99.2
--- NOTE | 2018-10-22 12:48 | ED ---
General Adult HPI - General Chief complaint: Back Pain/Injury Stated complaint: BACK PAIN Source: patient, RN notes reviewed Mode of arrival: ambulatory Limitations: no limitations - History of Present Illness Initial comments: Patient is a 48 year old female with history of multiple sclerosis and low back pain s/p surgery who presents to the emergency department with c/o low back pain that started last night. She reports that it is worse on the right side and worse with sitting and walking. She c/o pain into her right leg with numbness in her thigh and foot. She takes Ultram 3 times a day for her multiple sclerosis. She has tried using ice last night and today. She reports chronic urinary incontinence from her multiple sclerosis. No bowel incontinence. No saddle anesthesia. Patient denies any recent trauma, rash, weakness, fever, chills, shortness of breath, chest pain, abdominal pain, nausea or vomiting, dysuria or hematuria, constipation or diarrhea, headaches or visual changes, or any other complaints. - Related Data Home Medications Medication Instructions Recorded Confirmed Baclofen 10 mg PO DAILY 09/25/15 02/03/18 Betaseron 1 injection IM Q48H 09/25/15 02/03/18 traMADol HCL [Ultram] 50 mg PO BID PRN 09/25/15 02/03/18 Acetaminophen Tab [Tylenol] 1,000 mg PO Q6HR PRN 10/30/15 02/03/18 Multivitamins, Thera [Multivitamin 1 tab PO DAILY 10/30/15 02/03/18 (formulary)] [place]-3 Fatty Acids/Fish Oil [Fish 1,000 mg PO BID 10/30/15 02/03/18 Oil 1,000 mg Softgel] Vitamin B Complex 1 cap PO DAILY 10/30/15 02/03/18 buPROPion XL [Wellbutrin XL] 450 mg PO DAILY 04/30/16 02/03/18 Ascorbic Acid [Vitamin C] 1,000 mg PO BID 06/25/17 02/03/18 Cholecalciferol [Vitamin D3] 5,000 unit PO DAILY 06/25/17 02/03/18 Cranberry Fruit Concentrate 450 mg PO BID 06/25/17 02/03/18 [Cranberry] Furosemide [Lasix] 20 mg PO DAILY PRN 06/25/17 02/03/18 Hydroxychloroquine Sulfate 200 mg PO BID 06/25/17 02/03/18 [Plaquenil] L.acidoph,Paracasei, B.lactis 1 each PO DAILY 06/25/17 02/03/18 [Probiotic] Levothyroxine Sodium [Synthroid] 175 mcg PO QAM 06/25/17 02/03/18 Magnesium Oxide [Mag-Ox] 250 mg PO HS 06/25/17 02/03/18 Naproxen Sodium 220 mg PO BID PRN 06/25/17 02/03/18 Niacin [Niacin ER] 500 mg PO DAILY 06/25/17 02/03/18 Oxybutynin Chloride [Ditropan] 5 mg PO TID 06/25/17 02/03/18 Phentermine HCl [Adipex-P] 37.5 mg PO QAM 06/25/17 02/03/18 amLODIPine [Norvasc] 5 mg PO DAILY 06/25/17 02/03/18 Gabapentin 800 mg PO QID 09/26/17 02/03/18 Cyanocobalamin (Vitamin B-12) 1,000 mcg PO DAILY 12/02/17 02/03/18 [Vitamin B-12] Docusate [Colace] 100 mg PO DAILY PRN 12/02/17 02/03/18 Ferrous Sulfate [Feosol] 325 mg PO DAILY 12/02/17 02/03/18 Methylcellulose (with Sugar) 2 gm PO DAILY 12/02/17 02/03/18 [Citrucel Powder] Ubidecarenone [Co Q-10] 300 mg PO DAILY 12/02/17 02/03/18 Allergies Allergy/AdvReac Type Severity Reaction Status Date / Time No Known Allergies Allergy Verified 10/22/18 12:20 Review of Systems ROS Statement: Those systems with pertinent positive or pertinent negative responses have been documented in the HPI. ROS Other: All systems not noted in ROS Statement are negative. Past Medical History Past Medical History: Neurologic Disorder, Thyroid Disorder Additional Past Medical History / Comment(s): Multiple Sclerosis; Lupus and rheumatoid arthritis, Hx of kidney stone, constipation, self cath, has urinary retention, frequent UTI's, herniated disc History of Any Multi-Drug Resistant Organisms: MRSA Date of last positivie culture/infection: 2014 MDRO Source:: LT LEG Past Surgical History: Back Surgery, Bladder Surgery, Section, Cholecystectomy, Orthopedic Surgery Additional Past Surgical History / Comment(s): raven bunionectomies, bladder sling ,lithotripsy, fusion L3 and L4, PAIN CLINIC INJECTIONS Past Anesthesia/Blood Transfusion Reactions: No Reported Reaction Past Psychological History: Anxiety Smoking Status: Former smoker Past Alcohol Use History: None Reported Past Drug Use History: None Reported - Past Family History Father Family Medical History: Cancer Additional Family Medical History / Comment(s): lung cancer x2 Mother Family Medical History: Cancer Additional Family Medical History / Comment(s): rectal cancer General Exam Limitations: no limitations General appearance: alert Head exam: Present: atraumatic, normocephalic Eye exam: Present: normal appearance Respiratory exam: Present: normal lung sounds bilaterally Cardiovascular Exam: Present: regular rate, normal rhythm GI/Abdominal exam: Present: soft, normal bowel sounds Extremities exam: Present: normal inspection, full ROM, normal capillary refill , other (DP and PT pulses palpable and strong bilaterally. No calf tenderness to palpation. Strength 5/5 bilateral LE.) Back exam: Present: normal inspection, tenderness (Right lower back.) Neurological exam: Present: alert, oriented X3, normal gait Psychiatric exam: Present: other Skin exam: Present: warm, dry, normal color Course Vital Signs 10/22/18 10/22/18 12:17 13:56 Temperature 99.2 F Pulse Rate 101 H 93 Respiratory 20 Rate Blood Pressure 118/70 O2 Sat by Pulse 98 99 Oximetry Medical Decision Making - Medical Decision Making MRI Lumbar Spine from 09/15/2018 reviewed: Multilevel degenerative disc disease and multilevel postoperative changes of fusion. Moderate extruded disc herniation at T12-L1 without cord contact. Patient does not want Morphine or any additional pain medicine in the ER and would like to go home. I encouraged her to follow-up with her Neurologist. Case discussed in detail with attending physician Dr. Huddleston. Disposition Clinical Impression: Chronic low back pain Disposition: HOME SELF-CARE Condition: Good Instructions: Chronic Back Pain (ED) Additional Instructions: Follow-up with your PCP in 2 days. Follow-up with your neurologist in 1-2 days. Is patient prescribed a controlled substance at d/c from ED?: No Referrals: Myron Hyatt MD [Primary Care Provider] - 1-2 days Time of Disposition: 14:28
[2018-10-22] MEDS ORDERED: KETOROLAC 60 MG/2 ML VIAL IM STA (13:30)
[2018-10-22 13:57] VITALS: PULSE 93
== END 2018-10-22 14:33 | disposition home or self-care (01) ==
LOC: EC 12:04
DX: G89.29 Other chronic pain (principal); M54.5 Low back pain; R32 Unspecified urinary incontinence; G35 Multiple sclerosis; E07.9 Disorder of thyroid, unspecified; F41.9 Anxiety disorder, unspecified; Z87.891 Personal history of nicotine dependence; Z86.14 Personal history of Methicillin resistant Staphylococcus aureus infection; Z98.890 Other specified postprocedural states; Z79.899 Other long term (current) drug therapy
CPT/HCPCS: 99283; 96372; J1885

== ENCOUNTER → 2019-03-27 | Outpatient (CLI) | payer OTHER ==
--- NOTE | 2019-03-31 14:16 | MM ---
Reason for exam: screening (asymptomatic). Last mammogram was performed 4 years and 11 months ago. History: Took hormonal contraceptives for 4 years. Physical Findings: A clinical breast exam by your physician is recommended on an annual basis and results should be correlated with mammographic findings. MG 3D Screening Mammo W/Cad Bilateral CC and MLO view(s) were taken. Prior study comparison: April 26, 2014, bilateral MG screening mammo w CAD. The breast tissue is heterogeneously dense. This may lower the sensitivity of mammography. Finding: There is a 7 mm equal density (isodense) mass in the upper outer quadrant of the left breast. There is asymmetric density left upper outer quadrant. ASSESSMENT: Incomplete: need additional imaging evaluation, BI-RAD 0 RECOMMENDATION: Special view mammogram of the left breast. If lesion persists on supplemental views, image directed ultrasound is recommended. [facility] will attempt to contact patient to return for supplemental views and ultrasound if indicated.
== END | disposition home or self-care (01) ==
LOC: RADMAMWWP 13:50
PROVIDERS: ATTEND Obstetrics & Gynecology
DX: Z12.31 Encounter for screening mammogram for malignant neoplasm of breast (principal)
CPT/HCPCS: 77063; 77067

== ENCOUNTER → 2019-04-08 | Outpatient (CLI) | payer OTHER ==
--- NOTE | 2019-04-09 09:31 | MM ---
Reason for exam: additional evaluation requested from abnormal screening. Last mammogram was performed less than 1 month ago. History: Family history of breast cancer in paternal grandmother. Took hormonal contraceptives for 4 years. Physical Findings: Nurse Summary: 1cm nodule in the left breast at 10 o'clock (nurse mj). MG 3D Work Up W/Cad LT Spot compression CC, spot compression MLO, and ML view(s) were taken of the left breast. Prior study comparison: March 27, 2019, bilateral MG 3d screening mammo w/cad. April 26, 2014, bilateral MG screening mammo w CAD. Finding: There is a persistent equal density (isodense), indistinct irregular mass in the upper outer quadrant, middle position of the left breast. Ultrasound recommended, also ultrasound palpable which does not correlate with this mammographic density. New finding since April 26, 2014 and March 27, 2019. These results were verbally communicated with the patient and result sheet given to the patient on 04/08/19. ASSESSMENT: Incomplete: need additional imaging evaluation, BI-RAD 0 RECOMMENDATION: Ultrasound of the left breast.
--- NOTE | 2019-04-09 09:32 | USB ---
Reason for exam: additional evaluation requested from abnormal screening. History: Family history of breast cancer in paternal grandmother. Took hormonal contraceptives for 4 years. US Breast Workup Limited LT Left limited breast ultrasound including focal area of concern, retroareolar and axilla demonstrates a 0.8 x 1.1 x 0.3cm oval, cluster, cystic lesion at 1 o'clock and a 0.3 x 0.2 x 0.1cm oval lesion too small to characterize at 3 o'clock. These results were verbally communicated with the patient and result sheet given to the patient on 04/08/19. ASSESSMENT: Probably benign, BI-RAD 3 RECOMMENDATION: Follow-up diagnostic mammogram of the left breast in 6 months.
== END ==
LOC: RADMAMWWP 13:49
PROVIDERS: ATTEND Obstetrics & Gynecology
DX: R92.8 Other abnormal and inconclusive findings on diagnostic imaging of breast (principal)
CPT/HCPCS: 77061; 77065

== ENCOUNTER → 2019-11-30 | Outpatient (CLI) | payer BC ==
--- NOTE | 2019-11-30 08:50 | MM ---
Reason for exam: follow-up at short interval from prior study. Last mammogram was performed 8 months ago. History: Family history of breast cancer in paternal grandmother. Took hormonal contraceptives for 10 years. Physical Findings: Nurse did not find any significant physical abnormalities on exam. MG 3D Diag Mammo W/Cad LT CC and MLO view(s) were taken of the left breast. Prior study comparison: April 08, 2019, left breast MG 3d work up w/cad LT. March 27, 2019, bilateral MG 3d screening mammo w/cad. The breast tissue is heterogeneously dense. This may lower the sensitivity of mammography. Nodularity upper outer quadrant left breast persists. Ultrasound recommended. These results were verbally communicated with the patient and result sheet given to the patient on 11/30/19. ASSESSMENT: Incomplete: need additional imaging evaluation, BI-RAD 0 RECOMMENDATION: Ultrasound of the left breast.
--- NOTE | 2019-11-30 08:51 | USB ---
Reason for exam: additional evaluation requested from abnormal screening. History: Family history of breast cancer in paternal grandmother. Took hormonal contraceptives for 10 years. US Breast Limited LT Left limited breast ultrasound including focal area of concern, retroareolar and axilla demonstrates a 5 x 4 x 9mm lobular, cystic lesion at 1 o'clock. These results were verbally communicated with the patient and result sheet given to the patient on 11/30/19. ASSESSMENT: Benign, BI-RAD 2 RECOMMENDATION: Return to routine screening mammogram schedule for both breasts. Back on schedule.
== END | disposition home or self-care (01) ==
LOC: RADMAMWWP 07:34
PROVIDERS: ATTEND Obstetrics & Gynecology
DX: R92.8 Other abnormal and inconclusive findings on diagnostic imaging of breast (principal)
CPT/HCPCS: 77061; 77065

== ENCOUNTER 2020-01-25 17:23 | Observation (INO) | payer BC ==
[2020-01-25] MEDS ORDERED: methylPREDNISolone SOD SUCCI 125 MG/2 ML VIAL IV STA (17:54)
--- NOTE | 2020-01-25 17:59 | ED ---
SOB HPI - General Chief Complaint: Shortness of Breath Stated Complaint: poss pneumonia Time Seen by Provider: 01/25/20 17:41 Source: patient, RN notes reviewed Mode of arrival: wheelchair Limitations: no limitations - History of Present Illness Initial Comments: This a 41-year-old female history of multiple sclerosis history of COPD who states she started developing a fever last week was placed on antibiotics without much improvement she saw her doctor again was placed on inhalers set of antibiotics 3 days ago and is getting no better. She states she's had a fever nonproductive cough chest tightness no overt chills or sweats however. She is concerned because of the exertional dyspnea and dyspnea at rest and they no improvement. She denies a rhinorrhea sore throat she does states she has a headache no sinus drainage however. MD Complaint: shortness of breath, cough, anxiety - Related Data Home Medications Medication Instructions Recorded Confirmed Betaseron 1 injection IM Q48H 09/25/15 01/25/20 traMADol HCL [Ultram] 50 mg PO TID PRN 09/25/15 01/25/20 Acetaminophen Tab [Tylenol] 1,000 mg PO Q6HR PRN 10/30/15 01/25/20 Multivitamins, Thera [Multivitamin 1 tab PO DAILY 10/30/15 01/25/20 (formulary)] [place]-3 Fatty Acids/Fish Oil [Fish 1,000 mg PO BID 10/30/15 01/25/20 Oil 1,000 mg Softgel] Vitamin B Complex 1 cap PO DAILY 10/30/15 01/25/20 Ascorbic Acid [Vitamin C] 1,000 mg PO BID 06/25/17 01/25/20 Cholecalciferol [Vitamin D3] 5,000 unit PO DAILY 06/25/17 01/25/20 Furosemide [Lasix] 20 mg PO DAILY PRN 06/25/17 01/25/20 Hydroxychloroquine Sulfate 200 mg PO BID 06/25/17 01/25/20 [Plaquenil] L.acidoph,Paracasei, B.lactis 1 cap PO BID 06/25/17 01/25/20 [Probiotic] Naproxen Sodium 220 mg PO BID PRN 06/25/17 01/25/20 Niacin [Niacin ER] 500 mg PO DAILY 06/25/17 01/25/20 amLODIPine [Norvasc] 5 mg PO DAILY 06/25/17 01/25/20 Cyanocobalamin (Vitamin B-12) 1,000 mcg PO DAILY 12/02/17 01/25/20 [Vitamin B-12] Docusate [Colace] 200 mg PO DAILY PRN 12/02/17 01/25/20 Ferrous Sulfate [Feosol] 325 mg PO DAILY 12/02/17 01/25/20 Albuterol Nebulized [Ventolin 1.25 mg INHALATION RT-Q4H PRN 01/25/20 01/25/20 Nebulized] Albuterol Sulfate [Ventolin HFA] 2 puff INHALATION RT-Q4H PRN 01/25/20 01/25/20 Baclofen [Lioresal] 20 mg PO TID PRN 01/25/20 01/25/20 DULoxetine HCL 40 mg PO DAILY 01/25/20 01/25/20 DULoxetine HCL [Cymbalta] 20 mg PO DAILY 01/25/20 01/25/20 Gabapentin 600 mg PO TID 01/25/20 01/25/20 Levofloxacin [Levaquin] 750 mg PO DAILY 01/25/20 01/25/20 Levothyroxine Sodium [Synthroid] 200 mcg PO DAILY 01/25/20 01/25/20 Magnesium Oxide [Graves] 500 mg PO DAILY 01/25/20 01/25/20 Methylcellulose- Fiber Therapy 500 mg PO BID 01/25/20 01/25/20 Modafinil [Provigil] 100 mg PO DAILY 01/25/20 01/25/20 Nitrofurantoin Macrocrystal 50 mg PO Q48H 01/25/20 01/25/20 [Macrodantin] Ubidecarenone [Co Q-10] 400 mg PO DAILY 01/25/20 01/25/20 predniSONE [Deltasone] See Taper PO DAILY 01/25/20 01/25/20 Allergies Allergy/AdvReac Type Severity Reaction Status Date / Time No Known Allergies Allergy Verified 01/25/20 18:51 Review of Systems ROS Statement: Those systems with pertinent positive or pertinent negative responses have been documented in the HPI. ROS Other: All systems not noted in ROS Statement are negative. Past Medical History Past Medical History: Neurologic Disorder, Thyroid Disorder Additional Past Medical History / Comment(s): Multiple Sclerosis; Lupus and rheumatoid arthritis, Hx of kidney stone, constipation, self cath, has urinary retention, frequent UTI's, herniated disc History of Any Multi-Drug Resistant Organisms: MRSA Date of last positivie culture/infection: 2014 MDRO Source:: LT LEG Past Surgical History: Back Surgery, Bladder Surgery, Section, Cholecystectomy, Orthopedic Surgery Additional Past Surgical History / Comment(s): raven bunionectomies, bladder sling,lithotripsy, fusion L3 and L4, PAIN CLINIC INJECTIONS Past Anesthesia/Blood Transfusion Reactions: No Reported Reaction Past Psychological History: Anxiety Smoking Status: Former smoker Past Alcohol Use History: None Reported Past Drug Use History: None Reported - Past Family History Father Family Medical History: Cancer Additional Family Medical History / Comment(s): lung cancer x2 Mother Family Medical History: Cancer Additional Family Medical History / Comment(s): rectal cancer General Exam - General Exam Comments Initial Comments: This is a well-developed well-nourished awake alert oriented 3 female Limitations: no limitations General appearance: alert, anxious, in distress Head exam: Present: atraumatic, normocephalic, normal inspection Eye exam: Present: normal appearance, PERRL, EOMI. Absent: scleral icterus, conjunctival injection, periorbital swelling ENT exam: Present: normal exam, mucous membranes moist Neck exam: Present: normal inspection, full ROM, other. Absent: tenderness, men ingismus, lymphadenopathy Respiratory exam: Present: decreased breath sounds (No stridor. Bruits). Absent: respiratory distress, wheezes, rales, rhonchi, stridor Cardiovascular Exam: Present: normal rhythm, tachycardia, normal heart sounds. Absent: systolic murmur, diastolic murmur, rubs, gallop, clicks GI/Abdominal exam: Present: soft, normal bowel sounds. Absent: distended, tenderness, guarding, rebound, rigid Extremities exam: Present: normal inspection, full ROM, normal capillary refill. Absent: tenderness, pedal edema, joint swelling, calf tenderness Back exam: Present: normal inspection Neurological exam: Present: alert, oriented X3, CN II-XII intact Psychiatric exam: Present: normal affect, anxious Skin exam: Present: warm, dry, intact, normal color. Absent: rash Course Vital Signs 01/25/20 01/25/20 01/25/20 17:34 18:24 18:36 Temperature 98.3 F Pulse Rate 105 H 100 100 Respiratory 20 Rate Blood Pressure 135/76 O2 Sat by Pulse 97 Oximetry 01/25/20 01/25/20 18:41 19:51 Temperature Pulse Rate 87 Respiratory 20 16 Rate Blood Pressure 118/79 O2 Sat by Pulse 95 Oximetry Medical Decision Making - Medical Decision Making Patient has not gotten much relief she still feels dyspneic The patient's history of MS as well as her history of COPD she'll be admitted the case was discussed with Dr. Guallpa's group in the family and Dr. Munoz will be consulted. - Lab Data Result diagrams: 01/25/20 18:16 01/25/20 18:16 Lab Results 01/25/20 01/25/20 01/25/20 Range/Units 18:16 18:16 18:16 WBC 6.5 (3.8-10.6) k/uL RBC 4.36 (3.80-5.40) m/uL Hgb 13.9 (11.4-16.0) gm/dL Hct 41.0 (34.0-46.0) % MCV 94.2 (80.0-100.0) fL MCH 32.0 (25.0-35.0) pg MCHC 34.0 (31.0-37.0) g/dL RDW 12.2 (11.5-15.5) % Plt Count 238 (150-450) k/uL Neutrophils % 85 % Lymphocytes % 10 % Monocytes % 4 % Eosinophils % 1 % Basophils % 0 % Neutrophils # 5.5 (1.3-7.7) k/uL Lymphocytes # 0.7 L (1.0-4.8) k/uL Monocytes # 0.2 (0-1.0) k/uL Eosinophils # 0.0 (0-0.7) k/uL Basophils # 0.0 (0-0.2) k/uL PT 9.9 (9.0-12.0) sec INR 1.0 (<1.2) APTT 21.6 L (22.0-30.0) sec D-Dimer (<0.60) mg/L FEU Sodium 136 L (137-145) mmol/L Potassium 4.7 (3.5-5.1) mmol/L Chloride 101 (98-107) mmol/L Carbon Dioxide 26 (22-30) mmol/L Anion Gap 9 mmol/L BUN 24 H (7-17) mg/dL Creatinine 0.74 (0.52-1.04) mg/dL Est GFR (CKD-EPI)AfAm >90 (>60 ml/min/1.73 sqM) Est GFR (CKD-EPI)NonAf >90 (>60 ml/min/1.73 sqM) Glucose 119 H (74-99) mg/dL Calcium 9.8 (8.4-10.2) mg/dL Magnesium 2.2 (1.6-2.3) mg/dL Total Bilirubin 0.2 (0.2-1.3) mg/dL AST 27 (14-36) U/L ALT 23 (4-34) U/L Alkaline Phosphatase 53 (38-126) U/L Creatine Kinase <20 L (30-135) U/L Troponin I (0.000-0.034) ng/mL NT-Pro-B Natriuret Pep pg/mL Total Protein 7.3 (6.3-8.2) g/dL Albumin 4.5 (3.5-5.0) g/dL Influenza Type A RNA (Not Detectd) Influenza Type B (PCR) (Not Detectd) 01/25/20 01/25/20 01/25/20 Range/Units 18:16 18:16 19:41 WBC (3.8-10.6) k/uL RBC (3.80-5.40) m/uL Hgb (11.4-16.0) gm/dL Hct (34.0-46.0) % MCV (80.0-100.0) fL MCH (25.0-35.0) pg MCHC (31.0-37.0) g/dL RDW (11.5-15.5) % Plt Count (150-450) k/uL Neutrophils % % Lymphocytes % % Monocytes % % Eosinophils % % Basophils % % Neutrophils # (1.3-7.7) k/uL Lymphocytes # (1.0-4.8) k/uL Monocytes # (0-1.0) k/uL Eosinophils # (0-0.7) k/uL Basophils # (0-0.2) k/uL PT (9.0-12.0) sec INR (<1.2) APTT (22.0-30.0) sec D-Dimer (<0.60) mg/L FEU Sodium (137-145) mmol/L Potassium (3.5-5.1) mmol/L Chloride (98-107) mmol/L Carbon Dioxide (22-30) mmol/L Anion Gap mmol/L BUN (7-17) mg/dL Creatinine (0.52-1.04) mg/dL Est GFR (CKD-EPI)AfAm (>60 ml/min/1.73 sqM) Est GFR (CKD-EPI)NonAf (>60 ml/min/1.73 sqM) Glucose (74-99) mg/dL Calcium (8.4-10.2) mg/dL Magnesium (1.6-2.3) mg/dL Total Bilirubin (0.2-1.3) mg/dL AST (14-36) U/L ALT (4-34) U/L Alkaline Phosphatase (38-126) U/L Creatine Kinase (30-135) U/L Troponin I <0.012 (0.000-0.034) ng/mL NT-Pro-B Natriuret Pep 13 15 pg/mL Total Protein (6.3-8.2) g/dL Albumin (3.5-5.0) g/dL Influenza Type A RNA (Not Detectd) Influenza Type B (PCR) (Not Detectd) 01/25/20 01/25/20 Range/Units 19:45 19:50 WBC (3.8-10.6) k/uL RBC (3.80-5.40) m/uL Hgb (11.4-16.0) gm/dL Hct (34.0-46.0) % MCV (80.0-100.0) fL MCH (25.0-35.0) pg MCHC (31.0-37.0) g/dL RDW (11.5-15.5) % Plt Count (150-450) k/uL Neutrophils % % Lymphocytes % % Monocytes % % Eosinophils % % Basophils % % Neutrophils # (1.3-7.7) k/uL Lymphocytes # (1.0-4.8) k/uL Monocytes # (0-1.0) k/uL Eosinophils # (0-0.7) k/uL Basophils # (0-0.2) k/uL PT (9.0-12.0) sec INR (<1.2) APTT (22.0-30.0) sec D-Dimer 0.24 (<0.60) mg/L FEU Sodium (137-145) mmol/L Potassium (3.5-5.1) mmol/L Chloride (98-107) mmol/L Carbon Dioxide (22-30) mmol/L Anion Gap mmol/L BUN (7-17) mg/dL Creatinine (0.52-1.04) mg/dL Est GFR (CKD-EPI)AfAm (>60 ml/min/1.73 sqM) Est GFR (CKD-EPI)NonAf (>60 ml/min/1.73 sqM) Glucose (74-99) mg/dL Calcium (8.4-10.2) mg/dL Magnesium (1.6-2.3) mg/dL Total Bilirubin (0.2-1.3) mg/dL AST (14-36) U/L ALT (4-34) U/L Alkaline Phosphatase (38-126) U/L Creatine Kinase (30-135) U/L Troponin I (0.000-0.034) ng/mL NT-Pro-B Natriuret Pep pg/mL Total Protein (6.3-8.2) g/dL Albumin (3.5-5.0) g/dL Influenza Type A RNA Not Detected (Not Detectd) Influenza Type B (PCR) Not Detected (Not Detectd) - EKG Data -: EKG Interpreted by Sc EKG shows normal: sinus rhythm (EKG shows normal sinus rhythm of 90. Able 126 QRS duration 90 QT since QTC 364/445 rightward axis no acute ST-T wave changes) - Radiology Data Radiology results: report reviewed (AMI shows no definite evidence of infiltrate), image reviewed Disposition Clinical Impression: Acute exacerbation of chronic obstructive pulmonary disease, Multiple sclerosis, Multiple sclerosis exacerbation Disposition: ADMITTED IP TO THIS [facility] Condition: Fair Referrals: Myron Hyatt MD [Primary Care Provider] - 1-2 days
[2020-01-25] MEDS ORDERED: IPRATROPIUM-ALBUTEROL 3 ML NEB INHALATION STA (18:19)
[2020-01-25 18:47] LABS: Basophils % (A) 0 %; Eosinophils % (A) 1 %; HGB 13.9 gm/dL (11.4-16.0); Lymphocytes # (A) 0.7 k/uL (1.0-4.8); Lymphocytes % (A) 10 %; MCV 94.2 fL (80.0-100.0); Monocytes # (A) 0.2 k/uL (0-1.0); Monocytes % (A) 4 %; Neutrophils # (A) 5.5 k/uL (1.3-7.7); Neutrophils % (A) 85 %; Platelet Count 238 k/uL (150-450); RBC 4.36 m/uL (3.80-5.40); RDW 12.2 % (11.5-15.5); WBC 6.5 k/uL (3.8-10.6)
--- NOTE | 2020-01-25 18:53 | XR ---
EXAMINATION TYPE: XR chest 2V DATE OF EXAM: 01/25/2020 COMPARISON: 11/14/2015 HISTORY: Difficulty breathing TECHNIQUE: FINDINGS: Heart and mediastinum are normal. Lungs are clear. Diaphragm is normal. Bony thorax appears normal. There is neural stimulator in the lower thoracic spine. IMPRESSION: No active cardiopulmonary disease. Normal heart. No change.
[2020-01-25 19:01] LABS: ALT 23 U/L (4-34); AST 27 U/L (14-36); African American GFR (CKD) >90 (>60 ml/min/1.73 sqM); Albumin 4.5 g/dL (3.5-5.0); Alkaline Phosphatase 53 U/L (38-126); Anion Gap 9 mmol/L; Blood Urea Nitrogen 24 mg/dL (7-17); Calcium 9.8 mg/dL (8.4-10.2); Carbon Dioxide 26 mmol/L (22-30); Chloride 101 mmol/L (98-107); Creatine Kinase <20 U/L (30-135); Glucose 119 mg/dL (74-99); Magnesium 2.2 mg/dL (1.6-2.3); Non-African American GFR(CKD) >90 (>60 ml/min/1.73 sqM); Partial Thromboplastin Time 21.6 sec (22.0-30.0); Potassium 4.7 mmol/L (3.5-5.1); Prothrombin Time 9.9 sec (9.0-12.0); Sodium 136 mmol/L (137-145); Total Bilirubin 0.2 mg/dL (0.2-1.3); Total Protein 7.3 g/dL (6.3-8.2)
[2020-01-25] MEDS ORDERED: OMEGA PO SCH (21:00)
[2020-01-25] MEDS ORDERED: ACETAMINOPHEN TAB 500 MG TAB PO PRN (21:00)
[2020-01-25] MEDS ORDERED: NITROFURANTOIN MACROCRYSTAL 50 MG PO SCH (21:00)
[2020-01-25] MEDS ORDERED: FISH OIL PO SCH (21:00)
[2020-01-25] MEDS ORDERED: FATTY ACIDS PO SCH (21:00)
[2020-01-25] MEDS: traMADol 50 MG TAB PO PRN (23:18)
[2020-01-25] MEDS: GABAPENTIN 300 MG CAP PO SCH (23:18)
[2020-01-25] MEDS: ASCORBIC ACID 500 MG TAB PO SCH (23:18)
[2020-01-25] MEDS: HYDROCORTISONE SUCCINATE 100 MG/2 ML VIAL IV SCH (23:19)
[2020-01-25] MEDS: BACLOFEN 10 MG TAB PO PRN (23:19)
[2020-01-25] MEDS: LACTOBACILLUS ACIDOPH & BULGAR 1 EACH PACKET PO SCH (23:21)
[2020-01-26] MEDS: IPRATROPIUM-ALBUTEROL 3 ML NEB INHALATION SCH ×5 (00:03→17:37)
[2020-01-26] MEDS ORDERED: LEVOTHYROXINE 100 MCG TAB PO SCH (06:30)
[2020-01-26] MEDS: ASCORBIC ACID 500 MG TAB PO SCH (08:29)
[2020-01-26] MEDS: LACTOBACILLUS ACIDOPH & BULGAR 1 EACH PACKET PO SCH (08:31)
[2020-01-26] MEDS: HYDROCORTISONE SUCCINATE 100 MG/2 ML VIAL IV SCH ×2 (08:32→17:48)
[2020-01-26] MEDS: GABAPENTIN 300 MG CAP PO SCH ×2 (08:48→17:48)
[2020-01-26] MEDS: BACLOFEN 10 MG TAB PO PRN ×2 (08:48→17:50)
[2020-01-26] MEDS: traMADol 50 MG TAB PO PRN ×2 (08:55→17:50)
[2020-01-26] MEDS ORDERED: LEVOFLOXACIN 750 MG TAB PO SCH (09:00)
[2020-01-26] MEDS ORDERED: FERROUS SULFATE 325 MG TAB PO SCH (09:00)
[2020-01-26] MEDS ORDERED: MAGNESIUM OXIDE 400 MG TAB PO SCH (09:00)
[2020-01-26] MEDS ORDERED: NIACIN TR 500 MG CAPLET PO SCH (09:00)
[2020-01-26] MEDS ORDERED: DULoxetine HCL 20 MG CAPSULE.DR PO SCH (09:00)
[2020-01-26] MEDS ORDERED: FUROSEMIDE 20 MG TAB PO PRN (09:00)
[2020-01-26] MEDS ORDERED: CHOLECALCIFEROL 1,000 UNIT TAB PO SCH (09:00)
[2020-01-26] MEDS ORDERED: NAPROXEN 250 MG TAB PO PRN (09:00)
[2020-01-26] MEDS ORDERED: HYDROXYCHLOROQUINE SULFATE 200 MG TAB PO SCH (09:00)
[2020-01-26] MEDS ORDERED: CALCIUM POLYCARBOPHIL 625 MG TAB PO SCH (09:00)
[2020-01-26] MEDS ORDERED: NON FORMULARY DRUG (Ubidecarenone [Co Q-10] 400 MG) PO SCH (09:00)
[2020-01-26] MEDS ORDERED: MODAFINIL 100 MG TAB PO SCH (09:00)
[2020-01-26] MEDS ORDERED: MULTIVITAMINS, THERA 1 EACH TAB PO SCH (09:00)
[2020-01-26] MEDS ORDERED: amLODIPine 5 MG TAB PO SCH (09:00)
[2020-01-26] MEDS ORDERED: CYANOCOBALAMIN 500 MCG TAB PO SCH (09:00)
[2020-01-26] MEDS ORDERED: FOLIC ACID-VIT B COMPLEX-VIT C 1 CAP PO SCH (09:00)
[2020-01-26] MEDS ORDERED: DULOXETINE HCL 40 MG PO SCH (09:00)
[2020-01-26] MEDS ORDERED: DOCUSATE 100 MG CAP PO PRN (09:00)
--- NOTE | 2020-01-26 13:49 | P.HPIM ---
History of Present Illness 49-year-old female came in with complaints of unable to take a deep breath and nonproductive cough chest tightness chills and fevers but the patient doesn't have any fever here patient apparently was wheezing but the patient is not w heezing on exam and patient doesn't take deep breath because of which breath sounds appear like they're diminished. Patient didn't have any fever chest x- ray did not show any pneumonia. Patient has multiple other complaints including generalized weakness body aches all over influenza testing was negative. Patient has multiple other medical problems patient says he was diagnosed at one point of time with an keratitis and patient doesn't have any arthritic signs or symptoms and small joints patient at one point of time was told she is SLE and then was told it doesn't have SLE. in the past was diagnosed with multiple sclerosis as well I didn't go into details of how she was diagnosed but patient says she is on hydroxychloroquine for that. The hydroxychloroquine is not used for multiple sclerosis but use for rheumatoid arthritis or SLE.objectively patient is saturating at 98% on 2 L patient can be completely weaned off oxygenbut patient prefers to wear oxygen. Patient denied any CHF history is on Lasix or pedal edema. Patient was diagnosed with COPD 8 years ago patient quit smoking years ago. Review of Systems REVIEW OF SYSTEMS: CONSTITUTIONAL: as mentioned in HPI HEENT: No recent visual problems or hearing problems. Denied any sore throat. CARDIOVASCULAR: No chest pain, orthopnea, PND, no palpitations, no syncope. PULMONARY: no hemoptysis. GASTROINTESTINAL: No diarrhea, no nausea, no vomiting, no abdominal pain. NEUROLOGICAL: No headaches, no weakness, no numbness. HEMATOLOGICAL: Denies any bleeding or petechiae. GENITOURINARY: Denies any burning micturition, frequency, or urgency. MUSCULOSKELETAL/RHEUMATOLOGICAL: Denies any joint pain, swelling, or any muscle pain. ENDOCRINE: Denies any polyuria or polydipsia. The rest of the 14-point review of systems is negative. Past Medical History Past Medical History: Neurologic Disorder, Thyroid Disorder Additional Past Medical History / Comment(s): Multiple Sclerosis; Lupus and rheumatoid arthritis, Hx of kidney stone, constipation, self cath, has urinary retention, frequent UTI's, herniated disc History of Any Multi-Drug Resistant Organisms: MRSA Date of last positivie culture/infection: 2014 MDRO Source:: LT LEG Past Surgical History: Back Surgery, Bladder Surgery, Section, Cholecystectomy, Orthopedic Surgery Additional Past Surgical History / Comment(s): raven bunionectomies, bladder sling,lithotripsy, fusion L3 and L4, PAIN CLINIC INJECTIONS Past Anesthesia/Blood Transfusion Reactions: No Reported Reaction Past Psychological History: Anxiety Additional Psychological History / Comment(s): . Smoking Status: Former smoker Past Alcohol Use History: None Reported Additional Past Alcohol Use History / Comment(s): started smoking age 21, quit smoking 2013, smoked on and off, 1 PPD Past Drug Use History: None Reported - Past Family History Father Family Medical History: Cancer Additional Family Medical History / Comment(s): lung cancer x2 Mother Family Medical History: Cancer Additional Family Medical History / Comment(s): rectal cancer Medications and Allergies Home Medications Medication Instructions Recorded Confirmed Type Betaseron 1 injection IM Q48H 09/25/15 01/25/20 History traMADol HCL [Ultram] 50 mg PO TID PRN 09/25/15 01/25/20 History Acetaminophen Tab [Tylenol] 1,000 mg PO Q6HR PRN 10/30/15 01/25/20 History Multivitamins, Thera [Multivitamin 1 tab PO DAILY 10/30/15 01/25/20 History (formulary)] [place]-3 Fatty Acids/Fish Oil [Fish 1,000 mg PO BID 10/30/15 01/25/20 History Oil 1,000 mg Softgel] Vitamin B Complex 1 cap PO DAILY 10/30/15 01/25/20 History Ascorbic Acid [Vitamin C] 1,000 mg PO BID 06/25/17 01/25/20 History Cholecalciferol [Vitamin D3 (25 5,000 unit PO DAILY 06/25/17 01/25/20 History Mcg = 1000 Iu)] Furosemide [Lasix] 20 mg PO DAILY PRN 06/25/17 01/25/20 History Hydroxychloroquine Sulfate 200 mg PO BID 06/25/17 01/25/20 History [Plaquenil] L.acidoph,Paracasei, B.lactis 1 cap PO BID 06/25/17 01/25/20 History [Probiotic] Naproxen Sodium 220 mg PO BID PRN 06/25/17 01/25/20 History Niacin [Niacin ER] 500 mg PO DAILY 06/25/17 01/25/20 History amLODIPine [Norvasc] 5 mg PO DAILY 06/25/17 01/25/20 History Cyanocobalamin (Vitamin B-12) 1,000 mcg PO DAILY 12/02/17 01/25/20 History [Vitamin B-12] Docusate [Colace] 200 mg PO DAILY PRN 12/02/17 01/25/20 History Ferrous Sulfate [Iron (65 MG 325 mg PO DAILY 12/02/17 01/25/20 History Elemental)] Albuterol Sulfate [Ventolin HFA] 2 puff INHALATION RT-Q4H PRN 01/25/20 01/25/20 History Baclofen [Lioresal] 20 mg PO TID PRN 01/25/20 01/25/20 History DULoxetine HCL 40 mg PO DAILY 01/25/20 01/25/20 History DULoxetine HCL [Cymbalta] 20 mg PO DAILY 01/25/20 01/25/20 History Gabapentin 600 mg PO TID 01/25/20 01/25/20 History Levofloxacin [Levaquin] 750 mg PO DAILY 01/25/20 01/25/20 History Levothyroxine Sodium [Synthroid] 200 mcg PO DAILY 01/25/20 01/25/20 History Magnesium Oxide [Graves] 500 mg PO DAILY 01/25/20 01/25/20 History Methylcellulose- Fiber Therapy 500 mg PO BID 01/25/20 01/25/20 History Modafinil [Provigil] 100 mg PO DAILY 01/25/20 01/25/20 History Ubidecarenone [Co Q-10] 400 mg PO DAILY 01/25/20 01/25/20 History Albuterol Nebulized [Ventolin 2.5 mg INHALATION RT-Q8H PRN 01/26/20 01/26/20 History Nebulized] Famotidine [Pepcid] 20 mg PO BID #30 tablet 01/26/20 Rx predniSONE 10 mg PO DAILY #30 tab 01/26/20 Rx Allergies Allergy/AdvReac Type Severity Reaction Status Date / Time No Known Allergies Allergy Verified 01/25/20 18:51 Physical Exam Vitals: Vital Signs Temp Pulse Pulse Resp BP BP Pulse Ox 01/26/20 13:00 92 01/26/20 12:48 92 01/26/20 09:58 92 01/26/20 09:41 92 01/26/20 05:00 97.8 F 69 18 115/74 97 01/26/20 03:51 92 01/26/20 03:41 90 01/26/20 00:14 100 01/26/20 00:03 96 01/25/20 21:00 97.6 F 80 18 125/80 94 L 01/25/20 19:51 87 16 118/79 95 01/25/20 18:41 20 01/25/20 18:36 100 01/25/20 18:24 100 01/25/20 17:34 98.3 F 105 H 20 135/76 97 Intake and Output 01/25/20 01/26/20 01/26/20 22:59 06:59 14:59 Intake Total 350 500 Balance 350 500 Intake: Oral 350 500 Other: # Voids 0 1 Weight 72.575 kg 72.575 kg PHYSICAL EXAMINATION: GENERAL: The patient is alert and oriented x3, not in any acute distress. Well developed, well nourished. HEENT: Pupils are round and equally reacting to light. EOMI. No scleral icterus. No conjunctival pallor. Normocephalic, atraumatic. No pharyngeal erythema. No thyromegaly. CARDIOVASCULAR: S1 and S2 present. No murmurs, rubs, or gallops. PULMONARY: Chest is clear to auscultation, no wheezing or crackles. ABDOMEN: Soft, nontender, nondistended, normoactive bowel sounds. No palpable organomegaly. MUSCULOSKELETAL: No joint swelling or deformity. EXTREMITIES: No cyanosis, clubbing, or pedal edema. NEUROLOGICAL: Gross neurological examination did not reveal any focal deficits. SKIN: No rashes. Results CBC & Chem 7: 01/25/20 18:16 01/25/20 18:16 Labs: Abnormal Lab Results - Last 24 Hours (Table) 01/25/20 01/25/20 01/25/20 Range/Units 18:16 18:16 18:16 Lymphocytes # 0.7 L (1.0-4.8) k/uL APTT 21.6 L (22.0-30.0) sec Sodium 136 L (137-145) mmol/L BUN 24 H (7-17) mg/dL Glucose 119 H (74-99) mg/dL Creatine Kinase <20 L (30-135) U/L Thrombosis Risk Factor Assmnt - Choose All That Apply Any of the Below Risk Factors Present?: Yes Each Factor Represents 1 point: Age 41-60 years, Obesity (BMI >25) Other Risk Factors: No Thrombosis Risk Factor Assessment Total Risk Factor Score: 2 Thrombosis Risk Factor Assessment Level: Low Risk Assessment and Plan Plan: -symptoms of shortness of breath and cough: Patient when I examined is not wheezing may have had a COPD exacerbation on admission, can be discharged on systemic steroids other differentials include psychosomatic or malingering.patient was also comparing of unable to take a deep breath but d- dimer is negative because of its suspicion of PE is low we'll also obtainthe set of EKG and a troponin initial ones are within normal limits. This will rule out acute coronary syndrome as well -hypothyroidism -Chronic urinary retention with multiple UTIs and self-catheterization is presently does not a problem -questionable history of multiple sclerosis, lupus and rheumatoid arthritis -peripheral neuropathy Patient will be discharged today if cleared by pulmonology
--- NOTE | 2020-01-26 13:50 | P.DS ---
Providers Date of admission: 01/25/20 20:57 Attending physician: Kirstin Guallpa Consults: 01/25/20 20:57 Consult Physician Routine Consulting Provider: Riccardo Koenig Consult Reason/Comments: Dyspnea, history of MS Do you want consulting provider notified?: Yes Primary care physician: Myron Hyatt [facility] Course: please refer to my HPI for further details Patient Condition at Discharge: Fair Plan - Discharge Summary New Discharge Prescriptions: New Famotidine [Pepcid] 20 mg PO BID #30 tablet predniSONE 10 mg PO DAILY #30 tab Continue Betaseron 1 injection IM Q48H traMADol HCL [Ultram] 50 mg PO TID PRN PRN Reason: Pain Acetaminophen Tab [Tylenol] 1,000 mg PO Q6HR PRN PRN Reason: Pain Vitamin B Complex 1 cap PO DAILY [place]-3 Fatty Acids/Fish Oil [Fish Oil 1,000 mg Softgel] 1,000 mg PO BID Multivitamins, Thera [Multivitamin (formulary)] 1 tab PO DAILY amLODIPine [Norvasc] 5 mg PO DAILY Ascorbic Acid [Vitamin C] 1,000 mg PO BID Cholecalciferol [Vitamin D3 (25 Mcg = 1000 Iu)] 5,000 unit PO DAILY Furosemide [Lasix] 20 mg PO DAILY PRN PRN Reason: Edema Hydroxychloroquine Sulfate [Plaquenil] 200 mg PO BID L.acidoph,Paracasei, B.lactis [Probiotic] 1 cap PO BID Naproxen Sodium 220 mg PO BID PRN PRN Reason: Pain Niacin [Niacin ER] 500 mg PO DAILY Ferrous Sulfate [Iron (65 MG Elemental)] 325 mg PO DAILY Cyanocobalamin (Vitamin B-12) [Vitamin B-12] 1,000 mcg PO DAILY Docusate [Colace] 200 mg PO DAILY PRN PRN Reason: Constipation Baclofen [Lioresal] 20 mg PO TID PRN PRN Reason: Muscle Pain DULoxetine HCL 40 mg PO DAILY DULoxetine HCL [Cymbalta] 20 mg PO DAILY Gabapentin 600 mg PO TID Levothyroxine Sodium [Synthroid] 200 mcg PO DAILY Modafinil [Provigil] 100 mg PO DAILY Ubidecarenone [Co Q-10] 400 mg PO DAILY Methylcellulose- Fiber Therapy 500 mg PO BID Albuterol Sulfate [Ventolin HFA] 2 puff INHALATION RT-Q4H PRN PRN Reason: Shortness Of Breath Levofloxacin [Levaquin] 750 mg PO DAILY Magnesium Oxide [Graves] 500 mg PO DAILY Albuterol Nebulized [Ventolin Nebulized] 2.5 mg INHALATION RT-Q8H PRN PRN Reason: Shortness Of Breath Discontinued Nitrofurantoin Macrocrystal [Macrodantin] 50 mg PO Q48H predniSONE [Deltasone] See Taper PO DAILY Discharge Medication List Betaseron 1 injection IM Q48H 09/25/15 [History] traMADol HCL [Ultram] 50 mg PO TID PRN 09/25/15 [History] Acetaminophen Tab [Tylenol] 1,000 mg PO Q6HR PRN 10/30/15 [History] Multivitamins, Thera [Multivitamin (formulary)] 1 tab PO DAILY 10/30/15 [History] [place]-3 Fatty Acids/Fish Oil [Fish Oil 1,000 mg Softgel] 1,000 mg PO BID [History] Vitamin B Complex 1 cap PO DAILY 10/30/15 [History] Ascorbic Acid [Vitamin C] 1,000 mg PO BID 06/25/17 [History] Cholecalciferol [Vitamin D3 (25 Mcg = 1000 Iu)] 5,000 unit PO DAILY 06/25/17 [History] Furosemide [Lasix] 20 mg PO DAILY PRN 06/25/17 [History] Hydroxychloroquine Sulfate [Plaquenil] 200 mg PO BID 06/25/17 [History] L.acidoph,Paracasei, B.lactis [Probiotic] 1 cap PO BID 06/25/17 [History] Naproxen Sodium 220 mg PO BID PRN 06/25/17 [History] Niacin [Niacin ER] 500 mg PO DAILY 06/25/17 [History] amLODIPine [Norvasc] 5 mg PO DAILY 06/25/17 [History] Cyanocobalamin (Vitamin B-12) [Vitamin B-12] 1,000 mcg PO DAILY 12/02/17 [History] Docusate [Colace] 200 mg PO DAILY PRN 12/02/17 [History] Ferrous Sulfate [Iron (65 MG Elemental)] 325 mg PO DAILY 12/02/17 [History] Albuterol Sulfate [Ventolin HFA] 2 puff INHALATION RT-Q4H PRN 01/25/20 [History] Baclofen [Lioresal] 20 mg PO TID PRN 01/25/20 [History] DULoxetine HCL 40 mg PO DAILY 01/25/20 [History] DULoxetine HCL [Cymbalta] 20 mg PO DAILY 01/25/20 [History] Gabapentin 600 mg PO TID 01/25/20 [History] Levofloxacin [Levaquin] 750 mg PO DAILY 01/25/20 [History] Levothyroxine Sodium [Synthroid] 200 mcg PO DAILY 01/25/20 [History] Magnesium Oxide [Graves] 500 mg PO DAILY 01/25/20 [History] Methylcellulose- Fiber Therapy 500 mg PO BID 01/25/20 [History] Modafinil [Provigil] 100 mg PO DAILY 01/25/20 [History] Ubidecarenone [Co Q-10] 400 mg PO DAILY 01/25/20 [History] Albuterol Nebulized [Ventolin Nebulized] 2.5 mg INHALATION RT-Q8H PRN 01/26/20 [History] Famotidine [Pepcid] 20 mg PO BID #30 tablet 01/26/20 [Rx] predniSONE 10 mg PO DAILY #30 tab 01/26/20 [Rx] Follow up Appointment(s)/Referral(s): Myron Hyatt MD [Primary Care Provider] - 3 Days (Please call office to make Hospital follow up appointment ) Discharge Disposition: HOME SELF-CARE
--- NOTE | 2020-01-26 14:32 | P.CNPUL ---
History of Present Illness Consult date: 01/26/20 Requesting physician: Elsie Almazan Reason for consult: dyspnea Chief complaint: Shortness of breath History of present illness: This is a very pleasant 49-year-old female patient who follows with Dr. Hyatt as her primary care provider. She has a history of multiple sclerosis, lupus, rheumatoid arthritis, self catheterizations, frequent urinary tract infections, MRSA of the wound of the left leg in 2014, anxiety. She also has a previous history of chronic tobacco dependence. She presented here to the emergency room Yesterday with complaints of shortness of breath, cough, chest tightness, fever. She had been treated in the outpatient setting with antibiotics and inhalers without much improvement. Chest x-ray reveals no acute pulmonary process. She is seen in consultation on the regular medical floor. Awake and alert in no acute distress. She is maintaining O2 saturations in the 90s on room air. She's been afebrile. Hemodynamically stable. White count 6.5. Hemoglobin 13.9. D-dimer 0.24. Sodium 136. Potassium 4.7. Creatinine 0.74. Troponins are negative. Influenza screen negative. Review of Systems REVIEW OF SYSTEMS: CONSTITUTIONAL: Denies any recent significant weight loss or weight gain. EYES: Denies change in vision. EARS, NOSE, MOUTH, THROAT: Positive for headaches, denies sore throat. CARDIOVASCULAR: Denies chest pain, palpitations or syncopal episodes. RESPIRATORY: Positive for shortness of breath, cough, congestion no hemoptysis. GASTROINTESTINAL: Denies change in appetite, denies abdominal pain GENITOURINARY: Denies hematuria, denies infections. MUSKULOSKELETAL: Denies pain, denies swelling. INTEGUMENTARY: Denies rash, denies eczema. NEUROLOGICAL: Denies recent memory loss, no recent seizure activity. PSYCHIATRIC: Positive for anxiety, denies depression. HEMATOLOGIC/LYMPHATIC: Denies anemia, denies enlarged lymph nodes. Past Medical History Past Medical History: Neurologic Disorder, Thyroid Disorder Additional Past Medical History / Comment(s): Multiple Sclerosis; Lupus and rheumatoid arthritis, Hx of kidney stone, constipation, self cath, has urinary retention, frequent UTI's, herniated disc History of Any Multi-Drug Resistant Organisms: MRSA Date of last positivie culture/infection: 2014 MDRO Source:: LT LEG Past Surgical History: Back Surgery, Bladder Surgery, Section, Cholecystectomy, Orthopedic Surgery Additional Past Surgical History / Comment(s): raven bunionectomies, bladder sling,lithotripsy, fusion L3 and L4, PAIN CLINIC INJECTIONS Past Anesthesia/Blood Transfusion Reactions: No Reported Reaction Past Psychological History: Anxiety Additional Psychological History / Comment(s): . Smoking Status: Former smoker Past Alcohol Use History: None Reported Additional Past Alcohol Use History / Comment(s): started smoking age 21, quit smoking 2013, smoked on and off, 1 PPD Past Drug Use History: None Reported - Past Family History Father Family Medical History: Cancer Additional Family Medical History / Comment(s): lung cancer x2 Mother Family Medical History: Cancer Additional Family Medical History / Comment(s): rectal cancer Medications and Allergies Home Medications Medication Instructions Recorded Confirmed Type Betaseron 1 injection IM Q48H 09/25/15 01/25/20 History traMADol HCL [Ultram] 50 mg PO TID PRN 09/25/15 01/25/20 History Acetaminophen Tab [Tylenol] 1,000 mg PO Q6HR PRN 10/30/15 01/25/20 History Multivitamins, Thera [Multivitamin 1 tab PO DAILY 10/30/15 01/25/20 History (formulary)] Brinnon-3 Fatty Acids/Fish Oil [Fish 1,000 mg PO BID 10/30/15 01/25/20 History Oil 1,000 mg Softgel] Vitamin B Complex 1 cap PO DAILY 10/30/15 01/25/20 History Ascorbic Acid [Vitamin C] 1,000 mg PO BID 06/25/17 01/25/20 History Cholecalciferol [Vitamin D3 (25 5,000 unit PO DAILY 06/25/17 01/25/20 History Mcg = 1000 Iu)] Furosemide [Lasix] 20 mg PO DAILY PRN 06/25/17 01/25/20 History Hydroxychloroquine Sulfate 200 mg PO BID 06/25/17 01/25/20 History [Plaquenil] L.acidoph,Paracasei, B.lactis 1 cap PO BID 06/25/17 01/25/20 History [Probiotic] Naproxen Sodium 220 mg PO BID PRN 06/25/17 01/25/20 History Niacin [Niacin ER] 500 mg PO DAILY 06/25/17 01/25/20 History amLODIPine [Norvasc] 5 mg PO DAILY 06/25/17 01/25/20 History Cyanocobalamin (Vitamin B-12) 1,000 mcg PO DAILY 12/02/17 01/25/20 History [Vitamin B-12] Docusate [Colace] 200 mg PO DAILY PRN 12/02/17 01/25/20 History Ferrous Sulfate [Iron (65 MG 325 mg PO DAILY 12/02/17 01/25/20 History Elemental)] Albuterol Sulfate [Ventolin HFA] 2 puff INHALATION RT-Q4H PRN 01/25/20 01/25/20 History Baclofen [Lioresal] 20 mg PO TID PRN 01/25/20 01/25/20 History DULoxetine HCL 40 mg PO DAILY 01/25/20 01/25/20 History DULoxetine HCL [Cymbalta] 20 mg PO DAILY 01/25/20 01/25/20 History Gabapentin 600 mg PO TID 01/25/20 01/25/20 History Levofloxacin [Levaquin] 750 mg PO DAILY 01/25/20 01/25/20 History Levothyroxine Sodium [Synthroid] 200 mcg PO DAILY 01/25/20 01/25/20 History Magnesium Oxide [Graves] 500 mg PO DAILY 01/25/20 01/25/20 History Methylcellulose- Fiber Therapy 500 mg PO BID 01/25/20 01/25/20 History Modafinil [Provigil] 100 mg PO DAILY 01/25/20 01/25/20 History Ubidecarenone [Co Q-10] 400 mg PO DAILY 01/25/20 01/25/20 History Albuterol Nebulized [Ventolin 2.5 mg INHALATION RT-Q8H PRN 01/26/20 01/26/20 History Nebulized] Famotidine [Pepcid] 20 mg PO BID #30 tablet 01/26/20 Rx predniSONE 10 mg PO DAILY #30 tab 01/26/20 Rx Allergies Allergy/AdvReac Type Severity Reaction Status Date / Time No Known Allergies Allergy Verified 01/25/20 18:51 Physical Exam Vitals: Vital Signs Temp Pulse Pulse Resp BP BP Pulse Ox 01/26/20 13:00 92 01/26/20 12:48 92 01/26/20 09:58 92 01/26/20 09:41 92 01/26/20 05:00 97.8 F 69 18 115/74 97 01/26/20 03:51 92 01/26/20 03:41 90 01/26/20 00:14 100 01/26/20 00:03 96 01/25/20 21:00 97.6 F 80 18 125/80 94 L 01/25/20 19:51 87 16 118/79 95 01/25/20 18:41 20 01/25/20 18:36 100 01/25/20 18:24 100 01/25/20 17:34 98.3 F 105 H 20 135/76 97 Intake and Output 01/25/20 01/26/20 01/26/20 22:59 06:59 14:59 Intake Total 350 500 Balance 350 500 Intake: Oral 350 500 Other: # Voids 0 1 Weight 72.575 kg 72.575 kg GENERAL EXAM: Alert, pleasant 49-year-old female patient, comfortable in no apparent distress. HEAD: Normocephalic. EYES: Normal reaction of pupils, equal size. NOSE: Clear with pink turbinates. THROAT: No erythema or exudates. NECK: No masses, no JVD. CHEST: No chest wall deformity. LUNGS: Equal air entry with no crackles, wheeze, rhonchi or dullness. CVS: S1 and S2 normal with no audible murmur, regular rhythm. ABDOMEN: No hepatosplenomegaly, normal bowel sounds, no guarding or rigidity. SPINE: No scoliosis or deformity SKIN: No rashes CENTRAL NERVOUS SYSTEM: No focal deficits, tone is normal in all 4 extremities. EXTREMITIES: There is no peripheral edema. No clubbing, no cyanosis. Peripher al pulses are intact. Results - Laboratory Findings CBC and BMP: 01/25/20 18:16 01/25/20 18:16 PT/INR, D-dimer PT 9.9 sec (9.0-12.0) 01/25/20 18:16 INR 1.0 (<1.2) 01/25/20 18:16 D-Dimer 0.24 mg/L FEU (<0.60) 01/25/20 19:50 Abnormal lab findings: Abnormal Labs 01/25/20 01/25/20 01/25/20 18:16 18:16 18:16 Lymphocytes # 0.7 L APTT 21.6 L Sodium 136 L BUN 24 H Glucose 119 H Creatine Kinase <20 L - Diagnostic Findings Chest x-ray: image reviewed Assessment and Plan Assessment: 1 Shortness of breath of unclear etiology. Patient does have a previous history of smoking may have some underlying COPD. Chest x-ray is clear. Possibly related to her multiple sclerosis and inability to take deep breaths. 2 Multiple sclerosis 3 Hypothyroidism 4 History of multiple UTIs secondary to chronic renal retention and perform se lf-catheterization 5 History of lupus 6 History of rheumatoid arthritis 7 Peripheral neuropathy Plan: The patient was seen and evaluated by Dr. Cnatu. A CT angiogram of the order to rule out pulmonary embolism. If negative the patient is cleared for discharge from the pulmonary standpoint. She could follow-up in our office where we can perform pulmonary function testing to evaluate for any significant COPD or underlying restrictive lung disease due to her MS. She is agreeable to the plan. I, the cosigning physician, performed a history & physical examination of the patient. Lungs sounds are clear. Maintaining good O2 saturations in the 90s on room air. I discussed the assessment and plan of care with my nurse practitioner, Verenice Finney. I attest to the above note as dictated by her. Time with Patient: Greater than 30
[2020-01-26 15:32] VITALS: BP 110/58; RESP 16; TEMP 99
--- NOTE | 2020-01-26 17:16 | CT ---
EXAMINATION TYPE: CT angio chest DATE OF EXAM: 01/26/2020 COMPARISON: 11/09/2015 HISTORY: difficulty breathing CT DLP: 491 mGycm Automated exposure control for dose reduction was used. CONTRAST: Performed with IV Contrast, patient injected with 80cc mL of Isovue 370. There are 3-D post processed images. FINDINGS: Mediastinum is normal. There is no thoracic aortic aneurysm or dissection. There are no hilar masses. Heart appears normal. There is no pericardial effusion. There is no pleural effusion. There is normal contrast opacification of the pulmonary arteries. There are no filling defects. There is mild subsegmental atelectasis at the lung bases. There is irregular cortical thinning in the uppe r pole left kidney. Thoracic vertebra show normal spacing and alignment. Posterior elements are intact. Bony thorax appea rs intact. IMPRESSION: No evidence of pulmonary embolism. Mild subsegmental atelectasis at the lung bases. There is clearing of the pleural effusions and basilar atelectasis compared to old exam.
[2020-01-26 17:50] VITALS: PULSE 96
== END 2020-01-26 19:25 | disposition home or self-care (01) ==
LOC: EC 17:23 → 6NMEDSUR 20:57
PROVIDERS: ADMIT Hospitalist; ATTEND Hospitalist
DX: R06.02 Shortness of breath (principal); Z87.891 Personal history of nicotine dependence; Z87.440 Personal history of urinary (tract) infections; G35 Multiple sclerosis; E03.9 Hypothyroidism, unspecified; M06.9 Rheumatoid arthritis, unspecified; G62.9 Polyneuropathy, unspecified
CPT/HCPCS: 96376; 96375; 96374; 99285; 36415; 94640 ×3; 93005; 85379; 83880; 80053; 82550; 83735; 84484 ×2; 85025; 85610; 85730; 87040; 87502; 71046; 71275; G0378 ×2; J1720 ×2; J2930; Q9967

== ENCOUNTER → 2020-04-21 | Outpatient (CLI) | payer BC ==
[2020-04-21 12:30] LABS: Basophils % (A) 1 %; Eosinophils # (A) 0.4 k/uL (0-0.7); Eosinophils % (A) 8 %; HGB 13.3 gm/dL (11.4-16.0); Lymphocytes # (A) 1.2 k/uL (1.0-4.8); Lymphocytes % (A) 22 %; MCH 31.8 pg (25.0-35.0); MCHC 32.5 g/dL (31.0-37.0); Mean Platelet Volume 7.5; Monocytes # (A) 0.3 k/uL (0-1.0); Monocytes % (A) 5 %; Neutrophils # (A) 3.4 k/uL (1.3-7.7); Neutrophils % (A) 63 %; Platelet Count 210 k/uL (150-450); RBC 4.18 m/uL (3.80-5.40); RDW 12.4 % (11.5-15.5); WBC 5.4 k/uL (3.8-10.6)
[2020-04-21 20:15] LABS: African American GFR (CKD) 87.6 (60.0-200.0); Albumin 4.5 g/dL (3.80-4.90); Albumin/Globulin Ratio 2.14 (1.60-3.17); Anion Gap 10.1 mmol/L (4.00-12.00); BUN/Creat Ratio 18.89 Ratio (12.00-20.00); Calcium 9.6 mg/dL (8.7-10.3); Carbon Dioxide 23.9 mmol/L (21.6-31.8); Globulin 2.1 g/dL (1.6-3.3); Non-African American GFR(CKD) 75.6 (60.0-200.0); Total Bilirubin 0.4 mg/dL (0.2-1.2); Total Protein 6.6 g/dL (6.2-8.2)
[2020-04-21 20:23] LABS: Follicle Stimulating Hormone 12.7 mIU/mL
[2020-04-21 21:24] LABS: Luteinizing Hormone 6.1 mIU/mL
== END | disposition home or self-care (01) ==
LOC: LABWHC1 12:02
PROVIDERS: ATTEND Psychiatry & Neurology Neurology
DX: G35 Multiple sclerosis (principal); R61 Generalized hyperhidrosis; R53.83 Other fatigue
CPT/HCPCS: 36415; 80053; 83001; 83002; 85025; 86769

== ENCOUNTER → 2021-09-22 | Outpatient (CLI) | payer BC ==
--- NOTE | 2021-09-27 09:20 | MM ---
Reason for exam: screening (asymptomatic). Last mammogram was performed 1 year and 10 months ago. History: Family history of breast cancer in paternal grandmother. Took hormonal contraceptives for 10 years. Physical Findings: A clinical breast exam by your physician is recommended on an annual basis and results should be correlated with mammographic findings. MG 3D Screening Mammo W/Cad Bilateral CC and MLO view(s) were taken. Prior study comparison: November 30, 2019, left breast MG 3d diag mammo w/cad LT. April 08, 2019, left breast MG 3d work up w/cad LT. The breast tissue is heterogeneously dense. This may lower the sensitivity of mammography. There is chronic nodularity in the left posterior upper outer quadrant. No significant changes when compared with prior studies. ASSESSMENT: Benign, BI-RAD 2 RECOMMENDATION: Routine screening mammogram of both breasts in 1 year. Patient should continue monthly self breast exams. A negative report should not preclude additional follow up of suspicious palpable abnormalities.
== END | disposition home or self-care (01) ==
LOC: RADMAMWWP 16:39
PROVIDERS: ATTEND Obstetrics & Gynecology
DX: Z12.31 Encounter for screening mammogram for malignant neoplasm of breast (principal); Z80.3 Family history of malignant neoplasm of breast
CPT/HCPCS: 77063; 77067

== ENCOUNTER → 2023-07-10 | Outpatient (CLI) | payer BC | END | disposition home or self-care (01) | LOC: LABWHC1 12:01 | PROVIDERS: ATTEND Internal Medicine Endocrinology, Diabetes & Metabolism | DX: E03.8 Other specified hypothyroidism (principal) | CPT/HCPCS: 36415; 84443 ==

== ENCOUNTER → 2023-10-16 | Outpatient (CLI) | payer SELFPAY | END | disposition home or self-care (01) | LOC: LABWHC1 07:27 | PROVIDERS: ATTEND Pediatrics | DX: E03.8 Other specified hypothyroidism (principal) | CPT/HCPCS: 36415; 84443 ==

== ENCOUNTER → 2024-03-16 | Outpatient (CLI) | payer BC ==
--- NOTE | 2024-03-16 18:14 | CT ---
EXAMINATION TYPE: CT cervical spine wo/w con DATE OF EXAM: 03/16/2024 COMPARISON: None HISTORY: MS CT DLP: 2659.4 mGycm. Automated Exposure Control for Dose Reduction was Utilized. TECHNIQUE: CT scan of the cervical spine is obtained without contrast, axial images are obtained, sa gittal and coronal reformatted images are also reviewed. Findings: The craniovertebral junction relationships and prevertebral soft tissues are normal. Cervical vertebral segments are normal in height and alignment there is no fracture or subluxation. There is mild to moderate degenerative disease at C4-5, C5-6 and C6-7 levels where there is mild-to-m oderate disc space narrowing and spondylosis. No large disc herniations are seen. There is no bony encroachment of the cervical there is moderate to severe bony encroachment of the C5 -6 neural foramina on the left. The uncovertebral joints are moderately degenerated the C3-4, C4-5, C5-6 and C6-7 levels, right great er than left. The facet joints are intact. IMPRESSION: 1. [id number] degenerative disease in lower cervical spine. 2. Moderate osteoarthritic change of the vertebral joints in the mid lower cervical spine. 3. Moderate to severe bony encroachment of the C5-6 neural foramen on the left.
--- NOTE | 2024-03-16 19:18 | CT ---
EXAMINATION TYPE: CT brain wo/w con DATE OF EXAM: 03/16/2024 COMPARISON: 07/31/2010 HISTORY: MS CT DLP: 2659.4 mGycm Automated exposure control for dose reduction was used. CONTRAST: CT scan of the head is performed without and with IV Contrast, patient injected with 100 mL of Isovue 300. HISTORY: Migraine headaches. COMPARISON: 07/31/2010. TECHNIQUE: Multiple axial images are obtained from skull base to vertex finding uneventful administra tion of nonionic IV contrast material. FINDINGS: The ventricles, basal cisterns and sulci over the convexities within normal limits and there is no ma ss effect or shift of midline structures. No abnormal density is seen throughout the brain parenchyma and there is no acute intra or extra-axia l hemorrhage. Following contrast administration, there is no pathological enhancement. The posterior fossa and brainstem, fourth ventricle and cerebellar pontine angles appear normal. The intraorbital contents appear normal and symmetric. Visualized paranasal sinuses and mastoid air cells are well aerated. IMPRESSION: No significant abnormality seen with no interval change. Incidental note is made of a cavum septum pe llucidum and Vergae
== END | disposition home or self-care (01) ==
LOC: RADCTMAIN 15:56
PROVIDERS: ATTEND Psychiatry & Neurology Neurology
DX: M47.812 Spondylosis without myelopathy or radiculopathy, cervical region (principal); G35 Multiple sclerosis; M50.321 Other cervical disc degeneration at C4-C5 level; M50.322 Other cervical disc degeneration at C5-C6 level; M50.323 Other cervical disc degeneration at C6-C7 level; M99.71 Connective tissue and disc stenosis of intervertebral foramina of cervical region; G43.909 Migraine, unspecified, not intractable, without status migrainosus
CPT/HCPCS: 72127; 70470; Q9967